=== PATIENT | female | born 1950 | race African-American/Black ===

== ENCOUNTER 2018-03-30 08:41 | Inpatient (IN) ==
[2018-03-30] MEDS ORDERED: methylPREDNISolone SOD SUC 125 MG/2 ML VIAL IV STA (09:02)
[2018-03-30] MEDS ORDERED: LEVOFLOXACIN INJ 750 MG in PREMIX 1 EACH IV STA (09:02)
[2018-03-30 09:25] LABS: Basophils % 0.3 % (0.0-0.8); Eosinophils # 0.1 10*3/uL (0.0-0.87); Eosinophils % 0.5 % (0.00-10.9); Hematocrit 44.6 VOL% (35.7-47.0); Hemoglobin 14.6 GM/DL (12.0-16.0); Immature Granulocytes % 0.3 %; Immature Granulocytes Absolute 0.04 #; Lymphocytes # 2.1 10*3/uL (1.4-4.0); Lymphocytes % 17.8 % (21.3-54.2); Mean Corpuscular HGB Conc 32.7 GM/DL (32-36); Mean Corpuscular Hemoglobin 29 PG (27-34); Mean Corpuscular Volume 88.8 FL (87-102); Mean Platelet Volume 11.5 FL (9.6-12.0); Monocytes # 1.1 10*3/uL (0.11-0.8); Monocytes % 9.5 % (1.7-12.7); Neutrophils # 8.5 10*3/uL (1.4-7.4); Neutrophils % 71.6 % (38.7-73.9); Platelet Count 216 T/CUMM (130-400); Red Blood Count 5.02 MC/CUMM (3.8-5.5); Red Cell Distribution Width 12.9 % (9.3-17.3); White Blood Count 11.9 T/CUMM (4-12)
[2018-03-30] MEDS ORDERED: LEVOFLOXACIN INJ 150 ML IV ONE (09:25)
[2018-03-30 09:43] LABS: Hypochromasia 1+
[2018-03-30 10:01] LABS: Apearance,Urine Slightly Hazy (Clear); Bacteria,Urine Occasional /HPF (Few); Bilirubin,Urine Negative (Negative); Blood, Urine Negative (Negative); Glucose,Urine (UA) Negative (Negative); Ketones,Urine 20 mg/dL (Negative); Mucus,Urine Few /LPF (Occasional); Nitrite,Urine Negative (Negative); Protein,Urine 100 MG/DL; RBC,Urine 2 /HPF (0-4); Squamous Epithelial Cell,Urine Occasional /HPF (0-10); Urine Color Amber (Yellow); Urine Specific Gravity 1.027 (1.001-1.035); WBC,Urine 4 /HPF (0-6)
[2018-03-30 10:02] LABS: Alanine Aminotransferase 12 U/L (13-56); Albumin 3.5 G/DL (3.4-5.0); Alkaline Phosphatase 143 U/L (45-117); Aspartate Amino Transferase 10 U/L (0-37); Blood Urea Nitrogen 11 MG/DL (7-18); Calcium 10.7 MG/DL (8.5-10.1); Glucose 139 MG/DL (74-106); Osmolality,Calculated 283.1 MOS/KG (273-304); Potassium 3.5 MMOL/L (3.5-5.1); Sodium 142 MMOL/L (136-145); Total Protein 8.1 G/DL (6.4-8.3); Troponin I Only < 0.015 NG/ML (0.00-0.045)
[2018-03-30] MEDS: ALBUTEROL 2.5 MG/3 ML NEB RESP TX SCH ×5 (10:15→20:03)
[2018-03-30] MEDS ORDERED: GLUCAGON 1 MG VIAL IM PRN (10:54)
[2018-03-30] MEDS ORDERED: DEXTROSE 50% 25 GM/50 ML VIAL IV PRN (10:54)
[2018-03-30] MEDS ORDERED: ALBUTEROL 2.5 MG/3 ML NEB RESP TX PRN (10:58)
[2018-03-30] MEDS ORDERED: ACETAMINOPHEN 500 MG TABLET ONE (11:37)
[2018-03-30] MEDS ORDERED: ACETAMINOPHEN 500 MG TABLET PO STA (11:47)
[2018-03-30] MEDS: INSULIN LISPRO 100 UNIT/ML SUBCUT SCH ×3 (12:25→20:17)
[2018-03-30] MEDS: ONDANSETRON 4 MG/2 ML VIAL IV PRN (14:11)
[2018-03-30] MEDS: SODIUM CHLORIDE 0.45% 1,000 ML IV SCH (14:12)
[2018-03-30] MEDS: metFORMIN 500 MG TABLET PO SCH (17:24)
[2018-03-30] MEDS: CARVEDILOL 25 MG TABLET PO SCH (17:24)
[2018-03-30] MEDS: ACETAMINOPHEN 325 MG TABLET PO PRN (17:26)
[2018-03-30] MEDS: methylPREDNISolone SOD SUC 40 MG/1 ML VIAL IV SCH (17:26)
[2018-03-30] MEDS: DOCUSATE SODIUM 100 MG CAPSULE PO SCH (20:16)
[2018-03-30] MEDS: SIMVASTATIN 20 MG TABLET PO SCH (20:16)
[2018-03-30] MEDS: SUCRALFATE 1 GM TABLET PO SCH (20:16)
[2018-03-30] MEDS: THEOPHYLLINE ER 300 MG TABLET PO SCH (20:16)
[2018-03-30] MEDS: ENOXAPARIN 40 MG/0.4 ML SYRINGE SUBCUT SCH (20:17)
[2018-03-30] MEDS ORDERED: GEMFIBROZIL 600 MG TABLET PO SCH (21:00)
[2018-03-31] MEDS: ALBUTEROL 2.5 MG/3 ML NEB RESP TX SCH ×4 (01:13→19:46)
[2018-03-31 06:00] LABS: Basophils % 0.2 % (0.0-0.8); Hematocrit 40.5 VOL% (35.7-47.0); Hemoglobin 13.3 GM/DL (12.0-16.0); Immature Granulocytes Absolute 0.14 #; Lymphocytes # 2.4 10*3/uL (1.4-4.0); Lymphocytes % 17.8 % (21.3-54.2); Mean Corpuscular HGB Conc 32.8 GM/DL (32-36); Mean Corpuscular Hemoglobin 29 PG (27-34); Mean Corpuscular Volume 89.4 FL (87-102); Mean Platelet Volume 11.7 FL (9.6-12.0); Monocytes # 0.6 10*3/uL (0.11-0.8); Monocytes % 4.2 % (1.7-12.7); Neutrophils # 10.5 10*3/uL (1.4-7.4); Neutrophils % 76.8 % (38.7-73.9); Platelet Count 285 T/CUMM (130-400); Red Blood Count 4.53 MC/CUMM (3.8-5.5); Red Cell Distribution Width 12.6 % (9.3-17.3); White Blood Count 13.7 T/CUMM (4-12)
[2018-03-31 06:22] LABS: Platelet Estimate Adequate
[2018-03-31 06:23] LABS: Hypochromasia Slight
[2018-03-31] MEDS ORDERED: NON-FORMULARY MEDICATION (Naloxegol Oxalate [Movantik] 25 MG) PO SCH (07:30)
[2018-03-31] MEDS ORDERED: NON-FORMULARY MEDICATION (Umeclidinium Brm/Vilanterol Tr [Anoro Ellipta] 1 PUFF) INH SCH (09:00)
[2018-03-31] MEDS: INSULIN LISPRO 100 UNIT/ML SUBCUT SCH ×4 (09:47→20:43)
[2018-03-31] MEDS: FUROSEMIDE 40 MG TABLET PO SCH (09:48)
[2018-03-31] MEDS: THEOPHYLLINE ER 300 MG TABLET PO SCH ×2 (09:48→20:42)
[2018-03-31] MEDS: DOCUSATE SODIUM 100 MG CAPSULE PO SCH ×2 (09:49→20:42)
[2018-03-31] MEDS: metFORMIN 500 MG TABLET PO SCH ×2 (09:49→18:12)
[2018-03-31] MEDS: CARVEDILOL 25 MG TABLET PO SCH ×2 (09:49→18:12)
[2018-03-31] MEDS: PANTOPRAZOLE 40 MG TABLET PO SCH (09:49)
[2018-03-31] MEDS: SERTRALINE 25 MG TABLET PO SCH (09:49)
[2018-03-31] MEDS: LEVOFLOXACIN INJ 500 MG in PREMIX 1 EACH IV SCH (09:49)
[2018-03-31] MEDS: SODIUM CHLORIDE 0.45% 1,000 ML IV SCH (09:51)
[2018-03-31] MEDS: SUCRALFATE 1 GM TABLET PO SCH ×2 (09:51→21:27)
[2018-03-31] MEDS: methylPREDNISolone SOD SUC 40 MG/1 ML VIAL IV SCH ×3 (09:52→18:12)
[2018-03-31] MEDS: ONDANSETRON 4 MG/2 ML VIAL IV PRN (17:02)
[2018-03-31] MEDS: SIMVASTATIN 20 MG TABLET PO SCH (20:42)
[2018-03-31] MEDS: ENOXAPARIN 40 MG/0.4 ML SYRINGE SUBCUT SCH (20:42)
[2018-04-01] MEDS: ALBUTEROL 2.5 MG/3 ML NEB RESP TX SCH ×4 (00:08→19:30)
[2018-04-01] MEDS: methylPREDNISolone SOD SUC 40 MG/1 ML VIAL IV SCH ×3 (00:59→17:39)
[2018-04-01] MEDS: SODIUM CHLORIDE 0.45% 1,000 ML IV SCH (06:06)
[2018-04-01] MEDS: INSULIN LISPRO 100 UNIT/ML SUBCUT SCH ×3 (08:44→16:13)
[2018-04-01] MEDS: THEOPHYLLINE ER 300 MG TABLET PO SCH ×2 (09:30→20:31)
[2018-04-01] MEDS: metFORMIN 500 MG TABLET PO SCH ×2 (09:30→17:39)
[2018-04-01] MEDS: DOCUSATE SODIUM 100 MG CAPSULE PO SCH ×2 (09:31→20:31)
[2018-04-01] MEDS: LEVOFLOXACIN INJ 500 MG in PREMIX 1 EACH IV SCH (09:31)
[2018-04-01] MEDS: PANTOPRAZOLE 40 MG TABLET PO SCH (09:31)
[2018-04-01] MEDS: CARVEDILOL 25 MG TABLET PO SCH ×2 (09:31→17:39)
[2018-04-01] MEDS: SUCRALFATE 1 GM TABLET PO SCH ×2 (09:31→20:31)
[2018-04-01] MEDS: FUROSEMIDE 40 MG TABLET PO SCH (09:31)
[2018-04-01] MEDS: SERTRALINE 25 MG TABLET PO SCH (09:31)
[2018-04-01] MEDS: ONDANSETRON 4 MG/2 ML VIAL IV PRN (16:08)
[2018-04-01] MEDS: SIMVASTATIN 20 MG TABLET PO SCH (20:31)
[2018-04-01] MEDS: ENOXAPARIN 40 MG/0.4 ML SYRINGE SUBCUT SCH (20:31)
[2018-04-01] MEDS: ZALEPLON 5 MG CAPSULE PO SCH (20:31)
[2018-04-02] MEDS: ALBUTEROL 2.5 MG/3 ML NEB RESP TX SCH ×4 (00:31→19:50)
[2018-04-02] MEDS: methylPREDNISolone SOD SUC 40 MG/1 ML VIAL IV SCH ×4 (00:50→23:48)
[2018-04-02] MEDS: SODIUM CHLORIDE 0.45% 1,000 ML IV SCH ×2 (00:51→21:02)
[2018-04-02] MEDS: ONDANSETRON 4 MG/2 ML VIAL IV PRN ×3 (02:28→23:52)
[2018-04-02] MEDS: INSULIN LISPRO 100 UNIT/ML SUBCUT SCH ×5 (06:31→21:06)
[2018-04-02] MEDS: CARVEDILOL 25 MG TABLET PO SCH ×2 (08:46→18:03)
[2018-04-02] MEDS: DOCUSATE SODIUM 100 MG CAPSULE PO SCH ×2 (08:46→20:57)
[2018-04-02] MEDS: FUROSEMIDE 40 MG TABLET PO SCH (08:46)
[2018-04-02] MEDS: SERTRALINE 25 MG TABLET PO SCH (08:46)
[2018-04-02] MEDS: metFORMIN 500 MG TABLET PO SCH ×2 (08:46→18:03)
[2018-04-02] MEDS: SUCRALFATE 1 GM TABLET PO SCH ×2 (08:46→20:57)
[2018-04-02] MEDS: THEOPHYLLINE ER 300 MG TABLET PO SCH ×2 (08:46→20:57)
[2018-04-02] MEDS: PANTOPRAZOLE 40 MG TABLET PO SCH (08:46)
[2018-04-02] MEDS: LEVOFLOXACIN INJ 500 MG in PREMIX 1 EACH IV SCH (08:52)
[2018-04-02] MEDS ORDERED: LACTULOSE 20 GM/30 ML UDCUP PO PRN (11:20)
[2018-04-02] MEDS: MAGNESIUM HYDROXIDE SUSP 30 ML UDCUP PO SCH ×3 (11:54→21:49)
[2018-04-02] MEDS: ZALEPLON 5 MG CAPSULE PO SCH (20:57)
[2018-04-02] MEDS: SIMVASTATIN 20 MG TABLET PO SCH (20:57)
[2018-04-02] MEDS: ENOXAPARIN 40 MG/0.4 ML SYRINGE SUBCUT SCH (20:58)
[2018-04-03] MEDS: ALBUTEROL 2.5 MG/3 ML NEB RESP TX SCH ×4 (00:40→20:03)
[2018-04-03] MEDS: ONDANSETRON 4 MG/2 ML VIAL IV PRN ×2 (02:52→08:54)
[2018-04-03 05:30] LABS: Basophils % 0.1 % (0.0-0.8); Hematocrit 40.9 VOL% (35.7-47.0); Immature Granulocytes % 1.1 %; Immature Granulocytes Absolute 0.12 #; Lymphocytes # 1.7 10*3/uL (1.4-4.0); Lymphocytes % 16.1 % (21.3-54.2); Mean Corpuscular HGB Conc 34.2 GM/DL (32-36); Mean Corpuscular Hemoglobin 29 PG (27-34); Mean Corpuscular Volume 85.9 FL (87-102); Mean Platelet Volume 11.3 FL (9.6-12.0); Monocytes # 0.5 10*3/uL (0.11-0.8); Monocytes % 4.4 % (1.7-12.7); Neutrophils # 8.2 10*3/uL (1.4-7.4); Neutrophils % 78.3 % (38.7-73.9); Platelet Count 309 T/CUMM (130-400); Red Blood Count 4.76 MC/CUMM (3.8-5.5); Red Cell Distribution Width 12.5 % (9.3-17.3); White Blood Count 10.5 T/CUMM (4-12)
[2018-04-03] MEDS ORDERED: PROMETHAZINE INJ 25 MG in SODIUM CHLORIDE 0.9% 50 ML IV ONE (05:51)
[2018-04-03 06:07] LABS: Alanine Aminotransferase 13 U/L (13-56); Albumin 2.7 G/DL (3.4-5.0); Alkaline Phosphatase 84 U/L (45-117); Aspartate Amino Transferase 6 U/L (0-37); Bilirubin,Total < 0.39 MG/DL (0.2-1.0); Blood Urea Nitrogen 17 MG/DL (7-18); Calcium 8.6 MG/DL (8.5-10.1); Glucose 141 MG/DL (74-106); Potassium 2.9 MMOL/L (3.5-5.1); Sodium 143 MMOL/L (136-145); Total Protein 6.2 G/DL (6.4-8.3)
[2018-04-03] MEDS: MAGNESIUM HYDROXIDE SUSP 30 ML UDCUP PO SCH ×3 (06:17→21:49)
[2018-04-03] MEDS ORDERED: MAGNESIUM SULF RIDER 2 GM in PREMIX 1 EACH IV ONE (08:01)
[2018-04-03] MEDS ORDERED: POTASSIUM CHLORIDE 20 MEQ TABLET PO ONE (08:01)
[2018-04-03] MEDS: INSULIN LISPRO 100 UNIT/ML SUBCUT SCH ×4 (08:22→20:45)
[2018-04-03] MEDS: metFORMIN 500 MG TABLET PO SCH ×2 (08:49→17:59)
[2018-04-03] MEDS: PREGABALIN 100 MG CAPSULE PO PRN (08:49)
[2018-04-03] MEDS: methylPREDNISolone SOD SUC 40 MG/1 ML VIAL IV SCH ×2 (08:49→17:13)
[2018-04-03] MEDS: DOCUSATE SODIUM 100 MG CAPSULE PO SCH ×2 (08:49→20:50)
[2018-04-03] MEDS: SERTRALINE 25 MG TABLET PO SCH (08:49)
[2018-04-03] MEDS: THEOPHYLLINE ER 300 MG TABLET PO SCH ×2 (08:49→20:50)
[2018-04-03] MEDS: FUROSEMIDE 40 MG TABLET PO SCH (08:49)
[2018-04-03] MEDS: CARVEDILOL 25 MG TABLET PO SCH ×2 (08:49→17:59)
[2018-04-03] MEDS: LEVOFLOXACIN INJ 500 MG in PREMIX 1 EACH IV SCH (08:50)
[2018-04-03] MEDS: PANTOPRAZOLE 40 MG TABLET PO SCH (08:50)
[2018-04-03] MEDS: LACTULOSE 20 GM/30 ML UDCUP PO SCH ×2 (08:50→20:51)
[2018-04-03] MEDS: SUCRALFATE 1 GM TABLET PO SCH ×2 (08:54→20:50)
[2018-04-03] MEDS: NICOTINE 14 MG/24 HR PATCH TRANSDERM SCH (08:55)
[2018-04-03] MEDS: PROMETHAZINE 25 MG/1 ML VIAL IM PRN ×2 (12:33→20:46)
[2018-04-03] MEDS: ENOXAPARIN 40 MG/0.4 ML SYRINGE SUBCUT SCH (20:46)
[2018-04-03] MEDS: ZALEPLON 5 MG CAPSULE PO SCH (20:50)
[2018-04-03] MEDS: SIMVASTATIN 20 MG TABLET PO SCH (20:50)
[2018-04-03] MEDS: SODIUM CHLORIDE 0.45% 1,000 ML IV SCH (22:21)
[2018-04-04] MEDS: ALBUTEROL/IPRATROPIUM 3 ML NEB RESP TX SCH ×4 (00:28→19:13)
[2018-04-04 04:34] LABS: Basophils % 0.1 % (0.0-0.8); Eosinophils % 0.3 % (0.00-10.9); Hematocrit 42.1 VOL% (35.7-47.0); Hemoglobin 13.8 GM/DL (12.0-16.0); Immature Granulocytes % 1.1 %; Immature Granulocytes Absolute 0.16 #; Lymphocytes # 3.7 10*3/uL (1.4-4.0); Lymphocytes % 25.6 % (21.3-54.2); Mean Corpuscular HGB Conc 32.8 GM/DL (32-36); Mean Corpuscular Hemoglobin 29 PG (27-34); Mean Corpuscular Volume 88.6 FL (87-102); Monocytes # 1.2 10*3/uL (0.11-0.8); Monocytes % 7.9 % (1.7-12.7); Neutrophils # 9.5 10*3/uL (1.4-7.4); Platelet Count 317 T/CUMM (130-400); Red Blood Count 4.75 MC/CUMM (3.8-5.5); Red Cell Distribution Width 12.8 % (9.3-17.3); White Blood Count 14.6 T/CUMM (4-12)
[2018-04-04] MEDS: methylPREDNISolone SOD SUC 40 MG/1 ML VIAL IV SCH ×4 (04:41→23:35)
[2018-04-04 05:03] LABS: Albumin 2.7 G/DL (3.4-5.0); Bilirubin,Total 0.7 MG/DL (0.2-1.0); Calcium 8.7 MG/DL (8.5-10.1); Osmolality,Calculated 294.4 MOS/KG (273-304); Total Protein 5.9 G/DL (6.4-8.3)
[2018-04-04] MEDS: MAGNESIUM HYDROXIDE SUSP 30 ML UDCUP PO SCH ×4 (06:12→21:15)
[2018-04-04] MEDS: INSULIN LISPRO 100 UNIT/ML SUBCUT SCH ×4 (07:27→21:14)
[2018-04-04] MEDS: NICOTINE 14 MG/24 HR PATCH TRANSDERM SCH (08:56)
[2018-04-04] MEDS: SODIUM CHLORIDE 0.45% 1,000 ML IV SCH ×2 (08:56→11:33)
[2018-04-04] MEDS: LEVOFLOXACIN INJ 500 MG in PREMIX 1 EACH IV SCH (08:57)
[2018-04-04] MEDS: LACTULOSE 20 GM/30 ML UDCUP PO SCH ×2 (08:58→21:15)
[2018-04-04] MEDS: metFORMIN 500 MG TABLET PO SCH ×2 (08:58→16:39)
[2018-04-04] MEDS: SUCRALFATE 1 GM TABLET PO SCH ×2 (08:58→21:14)
[2018-04-04] MEDS: CARVEDILOL 25 MG TABLET PO SCH ×2 (08:58→16:39)
[2018-04-04] MEDS: PANTOPRAZOLE 40 MG TABLET PO SCH (08:59)
[2018-04-04] MEDS: THEOPHYLLINE ER 300 MG TABLET PO SCH ×2 (08:59→21:16)
[2018-04-04] MEDS: SERTRALINE 25 MG TABLET PO SCH (08:59)
[2018-04-04] MEDS: FUROSEMIDE 40 MG TABLET PO SCH (08:59)
[2018-04-04] MEDS: POTASSIUM CHLORIDE 20 MEQ TABLET PO PRN ×4 (08:59→15:16)
[2018-04-04] MEDS: DOCUSATE SODIUM 100 MG CAPSULE PO SCH ×2 (08:59→21:14)
[2018-04-04] MEDS: PREGABALIN 100 MG CAPSULE PO PRN ×2 (09:04→21:13)
[2018-04-04] MEDS: ONDANSETRON 4 MG/2 ML VIAL IV PRN ×2 (09:04→21:21)
[2018-04-04] MEDS: PROMETHAZINE 25 MG/1 ML VIAL IM PRN (10:31)
[2018-04-04] MEDS: POLYETHYLENE GLYCOL POWDER 17 GM PACK PO SCH (10:32)
[2018-04-04] MEDS ORDERED: POTASSIUM CHLORIDE 20 MEQ TABLET PO ONE (14:15)
[2018-04-04] MEDS ORDERED: MAGNESIUM SULF RIDER 2 GM in PREMIX 1 EACH IV ONE (15:38)
[2018-04-04] MEDS ORDERED: MAGNESIUM SULF RIDER 2 GM in PREMIX 1 EACH IV PRN (18:55)
[2018-04-04] MEDS ORDERED: MAGNESIUM SULF RIDER 4 GM in PREMIX 1 EACH IV PRN (18:55)
[2018-04-04] MEDS ORDERED: POTASSIUM CHLORIDE 20 MEQ TABLET PO SCH ×2 (21:00→22:47)
[2018-04-04] MEDS: SIMVASTATIN 20 MG TABLET PO SCH (21:14)
[2018-04-04] MEDS: ENOXAPARIN 40 MG/0.4 ML SYRINGE SUBCUT SCH (21:15)
[2018-04-04] MEDS: ZALEPLON 5 MG CAPSULE PO SCH (21:17)
[2018-04-05] MEDS: ALBUTEROL/IPRATROPIUM 3 ML NEB RESP TX SCH ×4 (00:40→19:44)
[2018-04-05] MEDS: ACETAMINOPHEN 325 MG TABLET PO PRN (02:16)
[2018-04-05 05:58] LABS: Basophils % 0.2 % (0.0-0.8); Eosinophils % 0.1 % (0.00-10.9); Hematocrit 41.7 VOL% (35.7-47.0); Hemoglobin 13.5 GM/DL (12.0-16.0); Immature Granulocytes % 1.4 %; Immature Granulocytes Absolute 0.27 #; Lymphocytes # 1.8 10*3/uL (1.4-4.0); Lymphocytes % 9.7 % (21.3-54.2); Mean Corpuscular HGB Conc 32.4 GM/DL (32-36); Mean Corpuscular Hemoglobin 29 PG (27-34); Mean Corpuscular Volume 89.5 FL (87-102); Mean Platelet Volume 11.3 FL (9.6-12.0); Monocytes # 0.5 10*3/uL (0.11-0.8); Monocytes % 2.5 % (1.7-12.7); Neutrophils # 16.1 10*3/uL (1.4-7.4); Neutrophils % 86.1 % (38.7-73.9); Platelet Count 316 T/CUMM (130-400); Red Blood Count 4.66 MC/CUMM (3.8-5.5); White Blood Count 18.7 T/CUMM (4-12)
[2018-04-05] MEDS: MAGNESIUM HYDROXIDE SUSP 30 ML UDCUP PO SCH ×3 (06:06→22:35)
[2018-04-05 06:39] LABS: Calcium 9.7 MG/DL (8.5-10.1); Osmolality,Calculated 287.1 MOS/KG (273-304); Potassium 4.9 MMOL/L (3.5-5.1)
[2018-04-05] MEDS: ONDANSETRON 4 MG/2 ML VIAL IV PRN ×2 (06:40→13:47)
[2018-04-05] MEDS: INSULIN LISPRO 100 UNIT/ML SUBCUT SCH ×4 (08:51→21:58)
[2018-04-05] MEDS: POLYETHYLENE GLYCOL POWDER 17 GM PACK PO SCH (08:59)
[2018-04-05] MEDS: LEVOFLOXACIN INJ 500 MG in PREMIX 1 EACH IV SCH (08:59)
[2018-04-05] MEDS: SODIUM CHLORIDE 0.45% 1,000 ML IV SCH (08:59)
[2018-04-05] MEDS: THEOPHYLLINE ER 300 MG TABLET PO SCH ×2 (09:02→20:25)
[2018-04-05] MEDS: FUROSEMIDE 40 MG TABLET PO SCH (09:02)
[2018-04-05] MEDS: SERTRALINE 25 MG TABLET PO SCH (09:02)
[2018-04-05] MEDS: DOCUSATE SODIUM 100 MG CAPSULE PO SCH ×2 (09:02→20:25)
[2018-04-05] MEDS: metFORMIN 500 MG TABLET PO SCH ×2 (09:02→16:34)
[2018-04-05] MEDS: SUCRALFATE 1 GM TABLET PO SCH ×2 (09:02→20:26)
[2018-04-05] MEDS: PANTOPRAZOLE 40 MG TABLET PO SCH (09:02)
[2018-04-05] MEDS: NICOTINE 14 MG/24 HR PATCH TRANSDERM SCH (09:03)
[2018-04-05] MEDS: CARVEDILOL 25 MG TABLET PO SCH ×2 (09:03→16:34)
[2018-04-05] MEDS: POTASSIUM CHLORIDE 20 MEQ TABLET PO SCH ×2 (09:03→20:25)
[2018-04-05] MEDS: methylPREDNISolone SOD SUC 40 MG/1 ML VIAL IV SCH ×2 (09:04→16:34)
[2018-04-05] MEDS: LACTULOSE 20 GM/30 ML UDCUP PO SCH ×2 (09:07→20:26)
[2018-04-05] MEDS: PROMETHAZINE 25 MG/1 ML VIAL IM PRN (09:31)
[2018-04-05] MEDS: ENOXAPARIN 40 MG/0.4 ML SYRINGE SUBCUT SCH (20:25)
[2018-04-05] MEDS: SIMVASTATIN 20 MG TABLET PO SCH (20:25)
[2018-04-05] MEDS: ZALEPLON 5 MG CAPSULE PO SCH (20:25)
[2018-04-06] MEDS: methylPREDNISolone SOD SUC 40 MG/1 ML VIAL IV SCH ×2 (00:08→07:58)
[2018-04-06] MEDS: ONDANSETRON 4 MG/2 ML VIAL IV PRN ×2 (01:22→07:57)
[2018-04-06] MEDS: ALBUTEROL/IPRATROPIUM 3 ML NEB RESP TX SCH ×2 (01:24→07:40)
[2018-04-06] MEDS: MAGNESIUM HYDROXIDE SUSP 30 ML UDCUP PO SCH (06:28)
[2018-04-06 07:44] VITALS: BP 175/79
[2018-04-06] MEDS: CARVEDILOL 25 MG TABLET PO SCH (07:56)
[2018-04-06] MEDS: metFORMIN 500 MG TABLET PO SCH (07:57)
[2018-04-06] MEDS: SODIUM CHLORIDE 0.45% 1,000 ML IV SCH (07:59)
[2018-04-06] MEDS: INSULIN LISPRO 100 UNIT/ML SUBCUT SCH (08:50)
[2018-04-06] MEDS: SUCRALFATE 1 GM TABLET PO SCH (09:08)
[2018-04-06] MEDS: FUROSEMIDE 40 MG TABLET PO SCH (09:08)
[2018-04-06] MEDS: PANTOPRAZOLE 40 MG TABLET PO SCH (09:08)
[2018-04-06] MEDS: POTASSIUM CHLORIDE 20 MEQ TABLET PO SCH (09:08)
[2018-04-06] MEDS: THEOPHYLLINE ER 300 MG TABLET PO SCH (09:08)
[2018-04-06] MEDS: DOCUSATE SODIUM 100 MG CAPSULE PO SCH (09:09)
[2018-04-06] MEDS: SERTRALINE 25 MG TABLET PO SCH (09:09)
[2018-04-06] MEDS: LEVOFLOXACIN INJ 500 MG in PREMIX 1 EACH IV SCH (09:09)
[2018-04-06] MEDS: POLYETHYLENE GLYCOL POWDER 17 GM PACK PO SCH (09:09)
[2018-04-06] MEDS: LACTULOSE 20 GM/30 ML UDCUP PO SCH (09:45)
[2018-04-06] MEDS: NICOTINE 14 MG/24 HR PATCH TRANSDERM SCH (09:46)
== END 2018-04-06 11:34 | disposition home or self-care (01) | DRG 191 ==
LOC: EDBD → EDUNIT# → N.ED 08:41 → N.EDINP 10:54 → N.4E 11:27
PROVIDERS: ADMIT Internal Medicine; ATTEND Internal Medicine

== ENCOUNTER 2019-07-22 12:49 | Inpatient (IN) ==
[2019-07-22 13:26] LABS: Basophils % 0.4 % (0.0-0.8); Eosinophils # 0.4 10*3/uL (0.0-0.87); Eosinophils % 5.2 % (0.00-10.9); Hemoglobin 15.7 GM/DL (12.0-16.0); Immature Granulocytes % 0.4 %; Immature Granulocytes Absolute 0.03 #; Lymphocytes # 0.9 10*3/uL (1.4-4.0); Lymphocytes % 10.8 % (21.3-54.2); Mean Corpuscular HGB Conc 32.7 GM/DL (32-36); Mean Corpuscular Volume 91.8 FL (87-102); Mean Platelet Volume 11.4 FL (9.6-12.0); Monocytes % 11.4 % (1.7-12.7); Neutrophils % 71.8 % (38.7-73.9); Platelet Count 223 T/CUMM (130-400); Red Blood Count 5.23 MC/CUMM (3.8-5.5); Red Cell Distribution Width 12.6 % (9.3-17.3); White Blood Count 8.3 T/CUMM (4-12)
[2019-07-22 13:53] LABS: Alanine Aminotransferase 21 U/L (13-56); Albumin 3.8 G/DL (3.4-5.0); Alkaline Phosphatase 109 U/L (45-117); Aspartate Amino Transferase 22 U/L (0-37); Blood Urea Nitrogen 6 MG/DL (7-18); Calcium 9.2 MG/DL (8.5-10.1); Glucose 120 MG/DL (74-106); Osmolality,Calculated 288.6 MOS/KG (273-304); Total Protein 7.2 G/DL (6.4-8.3); Troponin I < 0.015 NG/ML (0.00-0.045)
[2019-07-22] MEDS ORDERED: POTASSIUM CHLORIDE 20 MEQ TABLET PO STA (14:04)
[2019-07-22] MEDS ORDERED: MAGNESIUM SULF RIDER 2 GM in PREMIX 1 EACH IV STA (14:04)
[2019-07-22] MEDS ORDERED: ONDANSETRON 4 MG/2 ML VIAL IV STA (14:16)
[2019-07-22] MEDS ORDERED: methylPREDNISolone SOD SUC 125 MG/2 ML VIAL IV STA (14:16)
[2019-07-22] MEDS ORDERED: ALBUTEROL/IPRATROPIUM 3 ML NEB RESP TX STA (14:16)
[2019-07-22] MEDS ORDERED: PIPERACILLIN/TAZOBACTAM 3,375 MG in SODIUM CHLORIDE 0.9% 100 ML IV STA (14:16)
[2019-07-22 14:28] LABS: INR 0.9; PT Patient Result 10.3 SECS (9.6-12.2)
[2019-07-22] MEDS ORDERED: ACETAMINOPHEN 500 MG TABLET ONE (16:46)
[2019-07-22] MEDS ORDERED: ACETAMINOPHEN 500 MG TABLET PO STA (16:49)
[2019-07-22] MEDS ORDERED: SODIUM CHLORIDE 0.9% 1,000 ML IV SCH (17:44)
[2019-07-22] MEDS ORDERED: ALBUTEROL 2.5 MG/3 ML NEB RESP TX PRN (17:44)
[2019-07-22] MEDS ORDERED: GLUCAGON 1 MG VIAL IM PRN (17:44)
[2019-07-22] MEDS ORDERED: DEXTROSE 10% 250 ML BAG IV PRN (17:44)
[2019-07-22] MEDS ORDERED: metFORMIN 500 MG TABLET PO SCH (17:44)
[2019-07-22] MEDS ORDERED: MAGNESIUM SULF RIDER 2 GM in PREMIX 1 EACH IV ONE (18:04)
[2019-07-22] MEDS ORDERED: POTASSIUM CHLORIDE 20 MEQ TABLET PO ONE (18:05)
[2019-07-22] MEDS ORDERED: CARVEDILOL 12.5 MG TABLET PO ONE (18:08)
[2019-07-22] MEDS: INSULIN REGULAR 100 UNIT/ML SUBCUT SCH (18:34)
[2019-07-22] MEDS: CARVEDILOL 25 MG TABLET PO SCH (18:39)
[2019-07-22] MEDS: DEXTROSE 5% 1,000 ML IV SCH (18:48)
[2019-07-22] MEDS: ALBUTEROL/IPRATROPIUM 3 ML NEB RESP TX SCH (20:18)
[2019-07-22] MEDS: THEOPHYLLINE ER 300 MG TABLET PO SCH (21:22)
[2019-07-22] MEDS: GEMFIBROZIL 600 MG TABLET PO SCH (21:23)
[2019-07-22] MEDS: SUCRALFATE 1 GM TABLET PO SCH (21:23)
[2019-07-22] MEDS: SIMVASTATIN 20 MG TABLET PO SCH (21:23)
[2019-07-22] MEDS: DOCUSATE SODIUM 100 MG CAPSULE PO SCH (21:23)
[2019-07-22] MEDS: MAGNESIUM OXIDE 400 MG TABLET PO SCH (21:24)
[2019-07-22] MEDS: cycloSPORINE OPH EMUL 1 VIAL BOTH EYES PRN (21:27)
[2019-07-22] MEDS: LACTULOSE 20 GM/30 ML UDCUP PO SCH (21:35)
[2019-07-22] MEDS: methylPREDNISolone SOD SUC 40 MG/1 ML VIAL IV SCH (21:36)
[2019-07-22] MEDS: ENOXAPARIN 40 MG/0.4 ML SYRINGE SUBCUT SCH (21:36)
[2019-07-22] MEDS: NICOTINE 14 MG/24 HR PATCH TRANSDERM SCH (21:40)
[2019-07-23] MEDS: INSULIN REGULAR 100 UNIT/ML SUBCUT SCH ×4 (00:25→18:13)
[2019-07-23] MEDS: ALBUTEROL/IPRATROPIUM 3 ML NEB RESP TX SCH ×4 (00:37→19:20)
[2019-07-23] MEDS: methylPREDNISolone SOD SUC 40 MG/1 ML VIAL IV SCH ×4 (02:02→21:30)
[2019-07-23] MEDS: ACETAMINOPHEN 325 MG TABLET PO PRN (06:17)
[2019-07-23 06:18] LABS: Hematocrit 42.3 VOL% (35.7-47.0); Hemoglobin 13.8 GM/DL (12.0-16.0); Immature Granulocytes % 0.2 %; Immature Granulocytes Absolute 0.01 #; Lymphocytes % 21.4 % (21.3-54.2); Mean Corpuscular HGB Conc 32.6 GM/DL (32-36); Mean Corpuscular Volume 90.6 FL (87-102); Monocytes % 3.4 % (1.7-12.7); Platelet Count 223 T/CUMM (130-400); Red Blood Count 4.67 MC/CUMM (3.8-5.5); Red Cell Distribution Width 12.5 % (9.3-17.3); White Blood Count 4.7 T/CUMM (4-12)
[2019-07-23 06:36] LABS: Albumin 3.2 G/DL (3.4-5.0); Bilirubin,Total 0.7 MG/DL (0.2-1.0); Calcium 8.7 MG/DL (8.5-10.1); Osmolality,Calculated 290.1 MOS/KG (273-304); Risk Ratio 2.7; Total Protein 6.4 G/DL (6.4-8.3); VLDL CHOLESTEROL 19.2 MG/DL
[2019-07-23] MEDS ORDERED: NALOXEGOL 25 MG PO SCH (07:30)
[2019-07-23] MEDS ORDERED: POTASSIUM CHLORIDE 20 MEQ TABLET PO ONE (08:57)
[2019-07-23] MEDS ORDERED: PANTOPRAZOLE 40 MG TABLET PO SCH (09:00)
[2019-07-23] MEDS ORDERED: POTASSIUM CHLORIDE 20 MEQ TABLET PO SCH (09:00)
[2019-07-23] MEDS ORDERED: Umeclidinium-Vilanterol [Anoro Ellipta] 1 PUFF INH SCH (09:00)
[2019-07-23] MEDS: INSULIN GLARGINE 100 UNIT/ML SUBCUT SCH (09:21)
[2019-07-23] MEDS: DOCUSATE SODIUM 100 MG CAPSULE PO SCH ×2 (09:22→21:26)
[2019-07-23] MEDS: GEMFIBROZIL 600 MG TABLET PO SCH ×2 (09:22→21:26)
[2019-07-23] MEDS: CHOLECALCIFEROL 1,000 UNIT TABLET PO SCH (09:22)
[2019-07-23] MEDS: SUCRALFATE 1 GM TABLET PO SCH ×2 (09:22→21:26)
[2019-07-23] MEDS: THEOPHYLLINE ER 300 MG TABLET PO SCH ×2 (09:23→21:54)
[2019-07-23] MEDS: MAGNESIUM OXIDE 400 MG TABLET PO SCH ×2 (09:23→21:33)
[2019-07-23] MEDS: ASPIRIN EC 81 MG TABLET PO SCH (09:23)
[2019-07-23] MEDS: FUROSEMIDE 40 MG TABLET PO SCH (09:24)
[2019-07-23] MEDS: CARVEDILOL 25 MG TABLET PO SCH ×3 (09:24→16:33)
[2019-07-23] MEDS: PANTOPRAZOLE 40 MG TABLET PO SCH (09:24)
[2019-07-23] MEDS: SERTRALINE 25 MG TABLET PO SCH (09:24)
[2019-07-23] MEDS: NICOTINE 14 MG/24 HR PATCH TRANSDERM SCH (09:24)
[2019-07-23] MEDS: LACTULOSE 20 GM/30 ML UDCUP PO SCH ×2 (09:25→21:29)
[2019-07-23] MEDS: DEXTROSE 5% 1,000 ML IV SCH (09:29)
[2019-07-23] MEDS: ONDANSETRON 4 MG/2 ML VIAL IV PRN ×2 (09:35→15:45)
[2019-07-23] MEDS: AZITHROMYCIN INJ 250 MG in SODIUM CHLORIDE 0.9% 250 ML IV SCH (12:10)
[2019-07-23] MEDS: POTASSIUM CHLORIDE 20 MEQ TABLET PO SCH (21:26)
[2019-07-23] MEDS: SIMVASTATIN 20 MG TABLET PO SCH (21:26)
[2019-07-23] MEDS: ENOXAPARIN 40 MG/0.4 ML SYRINGE SUBCUT SCH (21:29)
[2019-07-24] MEDS: INSULIN REGULAR 100 UNIT/ML SUBCUT SCH ×4 (00:10→17:41)
[2019-07-24] MEDS: methylPREDNISolone SOD SUC 40 MG/1 ML VIAL IV SCH ×4 (03:25→21:51)
[2019-07-24] MEDS: ONDANSETRON 4 MG/2 ML VIAL IV PRN (03:34)
[2019-07-24] MEDS: DEXTROSE 5% 1,000 ML IV SCH ×2 (03:37→17:40)
[2019-07-24] MEDS: cycloSPORINE OPH EMUL 1 VIAL BOTH EYES PRN ×2 (05:50→21:49)
[2019-07-24] MEDS: ALBUTEROL/IPRATROPIUM 3 ML NEB RESP TX SCH ×4 (07:18→20:08)
[2019-07-24] MEDS: INSULIN GLARGINE 100 UNIT/ML SUBCUT SCH (09:52)
[2019-07-24] MEDS: LACTULOSE 20 GM/30 ML UDCUP PO SCH ×2 (09:53→22:22)
[2019-07-24] MEDS: FUROSEMIDE 40 MG TABLET PO SCH (09:54)
[2019-07-24] MEDS: NICOTINE 14 MG/24 HR PATCH TRANSDERM SCH (09:54)
[2019-07-24] MEDS: DOCUSATE SODIUM 100 MG CAPSULE PO SCH ×2 (09:54→21:42)
[2019-07-24] MEDS: GEMFIBROZIL 600 MG TABLET PO SCH ×2 (09:54→21:44)
[2019-07-24] MEDS: CARVEDILOL 25 MG TABLET PO SCH ×2 (09:54→16:37)
[2019-07-24] MEDS: ASPIRIN EC 81 MG TABLET PO SCH (09:55)
[2019-07-24] MEDS: MAGNESIUM OXIDE 400 MG TABLET PO SCH ×2 (09:55→21:42)
[2019-07-24] MEDS: PANTOPRAZOLE 40 MG TABLET PO SCH (10:13)
[2019-07-24] MEDS: POTASSIUM CHLORIDE 20 MEQ TABLET PO SCH ×2 (10:13→21:42)
[2019-07-24] MEDS: SERTRALINE 25 MG TABLET PO SCH (10:21)
[2019-07-24] MEDS: SUCRALFATE 1 GM TABLET PO SCH ×2 (10:21→21:42)
[2019-07-24] MEDS: CHOLECALCIFEROL 1,000 UNIT TABLET PO SCH (10:21)
[2019-07-24] MEDS: AZITHROMYCIN INJ 250 MG in SODIUM CHLORIDE 0.9% 250 ML IV SCH (10:22)
[2019-07-24] MEDS: THEOPHYLLINE ER 300 MG TABLET PO SCH ×2 (10:23→21:42)
[2019-07-24 10:29] LABS: Calcium 8.9 MG/DL (8.5-10.1); Osmolality,Calculated 287.3 MOS/KG (273-304)
[2019-07-24] MEDS: SIMVASTATIN 20 MG TABLET PO SCH (21:42)
[2019-07-24] MEDS: ENOXAPARIN 40 MG/0.4 ML SYRINGE SUBCUT SCH (21:51)
[2019-07-25] MEDS: BUDESONIDE 0.25 MG/2 ML NEB RESP TX SCH ×3 (00:46→19:54)
[2019-07-25] MEDS: ALBUTEROL/IPRATROPIUM 3 ML NEB RESP TX SCH ×4 (00:46→19:54)
[2019-07-25] MEDS: methylPREDNISolone SOD SUC 40 MG/1 ML VIAL IV SCH ×4 (03:13→21:21)
[2019-07-25 06:50] LABS: Calcium 9.2 MG/DL (8.5-10.1); Osmolality,Calculated 279.5 MOS/KG (273-304)
[2019-07-25] MEDS: INSULIN REGULAR 100 UNIT/ML SUBCUT SCH ×3 (07:47→13:04)
[2019-07-25] MEDS: LACTULOSE 20 GM/30 ML UDCUP PO SCH ×2 (09:53→21:12)
[2019-07-25] MEDS: NICOTINE 14 MG/24 HR PATCH TRANSDERM SCH (09:53)
[2019-07-25] MEDS: THEOPHYLLINE ER 300 MG TABLET PO SCH ×2 (09:54→21:11)
[2019-07-25] MEDS: DOCUSATE SODIUM 100 MG CAPSULE PO SCH ×2 (09:54→21:11)
[2019-07-25] MEDS: SERTRALINE 25 MG TABLET PO SCH (09:54)
[2019-07-25] MEDS: CARVEDILOL 25 MG TABLET PO SCH ×2 (09:54→16:00)
[2019-07-25] MEDS: GEMFIBROZIL 600 MG TABLET PO SCH ×2 (09:54→21:11)
[2019-07-25] MEDS: MAGNESIUM OXIDE 400 MG TABLET PO SCH ×2 (09:54→21:11)
[2019-07-25] MEDS: PANTOPRAZOLE 40 MG TABLET PO SCH (09:55)
[2019-07-25] MEDS: ASPIRIN EC 81 MG TABLET PO SCH (09:55)
[2019-07-25] MEDS: SUCRALFATE 1 GM TABLET PO SCH ×2 (09:55→21:11)
[2019-07-25] MEDS: FUROSEMIDE 40 MG TABLET PO SCH (09:55)
[2019-07-25] MEDS: CHOLECALCIFEROL 1,000 UNIT TABLET PO SCH (09:55)
[2019-07-25] MEDS: POTASSIUM CHLORIDE 20 MEQ TABLET PO SCH ×2 (09:56→21:12)
[2019-07-25] MEDS: DEXTROSE 5% 1,000 ML IV SCH ×2 (09:56→21:37)
[2019-07-25] MEDS: INSULIN GLARGINE 100 UNIT/ML SUBCUT SCH (10:33)
[2019-07-25] MEDS: AZITHROMYCIN INJ 250 MG in SODIUM CHLORIDE 0.9% 250 ML IV SCH (10:34)
[2019-07-25] MEDS: ONDANSETRON 4 MG/2 ML VIAL IV PRN (16:04)
[2019-07-25] MEDS: SIMVASTATIN 20 MG TABLET PO SCH (21:11)
[2019-07-25] MEDS: ENOXAPARIN 40 MG/0.4 ML SYRINGE SUBCUT SCH (21:44)
[2019-07-26] MEDS: ALBUTEROL/IPRATROPIUM 3 ML NEB RESP TX SCH ×4 (02:10→19:18)
[2019-07-26] MEDS: INSULIN REGULAR 100 UNIT/ML SUBCUT SCH ×5 (02:12→17:03)
[2019-07-26] MEDS: methylPREDNISolone SOD SUC 40 MG/1 ML VIAL IV SCH ×4 (04:10→20:08)
[2019-07-26 06:41] LABS: Osmolality,Calculated 283.4 MOS/KG (273-304)
[2019-07-26] MEDS: BUDESONIDE 0.25 MG/2 ML NEB RESP TX SCH ×2 (08:11→19:18)
[2019-07-26] MEDS: ASPIRIN EC 81 MG TABLET PO SCH (09:50)
[2019-07-26] MEDS: DOCUSATE SODIUM 100 MG CAPSULE PO SCH ×2 (09:50→20:10)
[2019-07-26] MEDS: SUCRALFATE 1 GM TABLET PO SCH ×2 (09:50→20:10)
[2019-07-26] MEDS: MAGNESIUM OXIDE 400 MG TABLET PO SCH ×2 (09:50→20:10)
[2019-07-26] MEDS: THEOPHYLLINE ER 300 MG TABLET PO SCH ×2 (09:51→20:10)
[2019-07-26] MEDS: PANTOPRAZOLE 40 MG TABLET PO SCH (09:51)
[2019-07-26] MEDS: POTASSIUM CHLORIDE 20 MEQ TABLET PO SCH ×2 (09:51→20:10)
[2019-07-26] MEDS: GEMFIBROZIL 600 MG TABLET PO SCH ×2 (09:51→20:10)
[2019-07-26] MEDS: DEXTROSE 5% 1,000 ML IV SCH ×2 (09:52→23:18)
[2019-07-26] MEDS: SERTRALINE 25 MG TABLET PO SCH (09:52)
[2019-07-26] MEDS: CHOLECALCIFEROL 1,000 UNIT TABLET PO SCH (09:52)
[2019-07-26] MEDS: CARVEDILOL 25 MG TABLET PO SCH ×2 (09:52→17:03)
[2019-07-26] MEDS: FUROSEMIDE 40 MG TABLET PO SCH (09:52)
[2019-07-26] MEDS: NICOTINE 14 MG/24 HR PATCH TRANSDERM SCH (09:52)
[2019-07-26] MEDS: LACTULOSE 20 GM/30 ML UDCUP PO SCH ×2 (09:53→20:11)
[2019-07-26] MEDS: ONDANSETRON 4 MG/2 ML VIAL IV PRN ×3 (09:53→23:14)
[2019-07-26] MEDS: INSULIN GLARGINE 100 UNIT/ML SUBCUT SCH (09:54)
[2019-07-26] MEDS: AZITHROMYCIN INJ 250 MG in SODIUM CHLORIDE 0.9% 250 ML IV SCH (11:39)
[2019-07-26] MEDS: ENOXAPARIN 40 MG/0.4 ML SYRINGE SUBCUT SCH (20:08)
[2019-07-26] MEDS: SIMVASTATIN 20 MG TABLET PO SCH (20:11)
[2019-07-27] MEDS: INSULIN REGULAR 100 UNIT/ML SUBCUT SCH ×4 (01:14→17:40)
[2019-07-27] MEDS: ALBUTEROL/IPRATROPIUM 3 ML NEB RESP TX SCH ×4 (01:40→20:35)
[2019-07-27] MEDS: methylPREDNISolone SOD SUC 40 MG/1 ML VIAL IV SCH ×3 (03:43→16:25)
[2019-07-27 06:09] LABS: Basophils % 0.1 % (0.0-0.8); Hematocrit 43.2 VOL% (35.7-47.0); Immature Granulocytes % 0.9 %; Lymphocytes # 1.7 10*3/uL (1.4-4.0); Lymphocytes % 14.9 % (21.3-54.2); Mean Corpuscular HGB Conc 32.4 GM/DL (32-36); Mean Corpuscular Volume 90.8 FL (87-102); Mean Platelet Volume 11.2 FL (9.6-12.0); Monocytes % 8.3 % (1.7-12.7); Neutrophils % 75.8 % (38.7-73.9); Platelet Count 270 T/CUMM (130-400); Red Blood Count 4.76 MC/CUMM (3.8-5.5); Red Cell Distribution Width 12.2 % (9.3-17.3); White Blood Count 11.4 T/CUMM (4-12)
[2019-07-27 06:14] LABS: Calcium 9.5 MG/DL (8.5-10.1); Osmolality,Calculated 277.8 MOS/KG (273-304)
[2019-07-27] MEDS: ONDANSETRON 4 MG/2 ML VIAL IV PRN ×2 (06:21→12:37)
[2019-07-27] MEDS: BUDESONIDE 0.25 MG/2 ML NEB RESP TX SCH ×2 (07:49→20:35)
[2019-07-27] MEDS: LACTULOSE 20 GM/30 ML UDCUP PO SCH ×2 (09:01→20:14)
[2019-07-27] MEDS: DOCUSATE SODIUM 100 MG CAPSULE PO SCH ×2 (09:02→20:14)
[2019-07-27] MEDS: POTASSIUM CHLORIDE 20 MEQ TABLET PO SCH ×2 (09:02→20:14)
[2019-07-27] MEDS: GEMFIBROZIL 600 MG TABLET PO SCH ×2 (09:02→20:13)
[2019-07-27] MEDS: CHOLECALCIFEROL 1,000 UNIT TABLET PO SCH (09:02)
[2019-07-27] MEDS: PANTOPRAZOLE 40 MG TABLET PO SCH (09:02)
[2019-07-27] MEDS: FUROSEMIDE 40 MG TABLET PO SCH (09:02)
[2019-07-27] MEDS: SERTRALINE 25 MG TABLET PO SCH (09:02)
[2019-07-27] MEDS: CARVEDILOL 25 MG TABLET PO SCH ×2 (09:02→16:25)
[2019-07-27] MEDS: SUCRALFATE 1 GM TABLET PO SCH ×2 (09:02→20:13)
[2019-07-27] MEDS: MAGNESIUM OXIDE 400 MG TABLET PO SCH ×2 (09:02→20:13)
[2019-07-27] MEDS: THEOPHYLLINE ER 300 MG TABLET PO SCH ×2 (09:03→20:13)
[2019-07-27] MEDS: ASPIRIN EC 81 MG TABLET PO SCH (09:03)
[2019-07-27] MEDS: NICOTINE 14 MG/24 HR PATCH TRANSDERM SCH (09:03)
[2019-07-27] MEDS: INSULIN GLARGINE 100 UNIT/ML SUBCUT SCH (09:07)
[2019-07-27] MEDS: DEXTROSE 5% 1,000 ML IV SCH (11:18)
[2019-07-27] MEDS: AZITHROMYCIN INJ 250 MG in SODIUM CHLORIDE 0.9% 250 ML IV SCH (11:18)
[2019-07-27] MEDS: PREGABALIN 100 MG CAPSULE PO PRN ×2 (14:30→20:13)
[2019-07-27] MEDS: cycloSPORINE OPH EMUL 1 VIAL BOTH EYES PRN (16:25)
[2019-07-27] MEDS: SIMVASTATIN 20 MG TABLET PO SCH (20:13)
[2019-07-27] MEDS: ENOXAPARIN 40 MG/0.4 ML SYRINGE SUBCUT SCH (20:14)
[2019-07-28] MEDS: DEXTROSE 5% 1,000 ML IV SCH (00:13)
[2019-07-28] MEDS: INSULIN REGULAR 100 UNIT/ML SUBCUT SCH ×5 (00:13→23:27)
[2019-07-28] MEDS: methylPREDNISolone SOD SUC 40 MG/1 ML VIAL IV SCH ×3 (02:03→16:57)
[2019-07-28] MEDS: ALBUTEROL/IPRATROPIUM 3 ML NEB RESP TX SCH ×4 (02:12→20:10)
[2019-07-28] MEDS: BUDESONIDE 0.25 MG/2 ML NEB RESP TX SCH ×2 (07:14→20:10)
[2019-07-28] MEDS: INSULIN GLARGINE 100 UNIT/ML SUBCUT SCH (09:13)
[2019-07-28] MEDS: ASPIRIN EC 81 MG TABLET PO SCH (09:14)
[2019-07-28] MEDS: FUROSEMIDE 40 MG TABLET PO SCH (09:14)
[2019-07-28] MEDS: PREGABALIN 100 MG CAPSULE PO PRN ×2 (09:14→17:38)
[2019-07-28] MEDS: THEOPHYLLINE ER 300 MG TABLET PO SCH ×2 (09:14→20:35)
[2019-07-28] MEDS: MAGNESIUM OXIDE 400 MG TABLET PO SCH ×2 (09:14→20:34)
[2019-07-28] MEDS: CARVEDILOL 25 MG TABLET PO SCH ×2 (09:15→16:57)
[2019-07-28] MEDS: NICOTINE 14 MG/24 HR PATCH TRANSDERM SCH (09:15)
[2019-07-28] MEDS: LACTULOSE 20 GM/30 ML UDCUP PO SCH ×2 (09:15→20:35)
[2019-07-28] MEDS: CHOLECALCIFEROL 1,000 UNIT TABLET PO SCH (09:15)
[2019-07-28] MEDS: DOCUSATE SODIUM 100 MG CAPSULE PO SCH ×2 (09:15→20:34)
[2019-07-28] MEDS: POTASSIUM CHLORIDE 20 MEQ TABLET PO SCH ×2 (09:15→20:34)
[2019-07-28] MEDS: SERTRALINE 25 MG TABLET PO SCH (09:15)
[2019-07-28] MEDS: SUCRALFATE 1 GM TABLET PO SCH ×2 (09:15→20:34)
[2019-07-28] MEDS: ONDANSETRON 4 MG/2 ML VIAL IV PRN ×2 (09:15→17:42)
[2019-07-28] MEDS: GEMFIBROZIL 600 MG TABLET PO SCH ×2 (09:15→20:34)
[2019-07-28] MEDS: PANTOPRAZOLE 40 MG TABLET PO SCH (09:16)
[2019-07-28] MEDS: AZITHROMYCIN INJ 250 MG in SODIUM CHLORIDE 0.9% 250 ML IV SCH (09:17)
[2019-07-28] MEDS: SIMVASTATIN 20 MG TABLET PO SCH (20:35)
[2019-07-28] MEDS: cycloSPORINE OPH EMUL 1 VIAL BOTH EYES PRN (20:35)
[2019-07-28] MEDS: ENOXAPARIN 40 MG/0.4 ML SYRINGE SUBCUT SCH (20:35)
[2019-07-29] MEDS: ALBUTEROL/IPRATROPIUM 3 ML NEB RESP TX SCH ×4 (01:47→19:21)
[2019-07-29] MEDS: INSULIN REGULAR 100 UNIT/ML SUBCUT SCH ×4 (05:57→23:43)
[2019-07-29] MEDS: BUDESONIDE 0.25 MG/2 ML NEB RESP TX SCH ×2 (07:47→19:21)
[2019-07-29] MEDS: MAGNESIUM OXIDE 400 MG TABLET PO SCH ×2 (09:20→23:04)
[2019-07-29] MEDS: ASPIRIN EC 81 MG TABLET PO SCH (09:20)
[2019-07-29] MEDS: FUROSEMIDE 40 MG TABLET PO SCH (09:20)
[2019-07-29] MEDS: CARVEDILOL 25 MG TABLET PO SCH ×2 (09:20→17:31)
[2019-07-29] MEDS: SUCRALFATE 1 GM TABLET PO SCH ×2 (09:20→23:04)
[2019-07-29] MEDS: SERTRALINE 25 MG TABLET PO SCH (09:21)
[2019-07-29] MEDS: POTASSIUM CHLORIDE 20 MEQ TABLET PO SCH ×2 (09:21→23:04)
[2019-07-29] MEDS: CHOLECALCIFEROL 1,000 UNIT TABLET PO SCH (09:21)
[2019-07-29] MEDS: GEMFIBROZIL 600 MG TABLET PO SCH ×2 (09:21→23:04)
[2019-07-29] MEDS: DOCUSATE SODIUM 100 MG CAPSULE PO SCH ×2 (09:21→23:04)
[2019-07-29] MEDS: PANTOPRAZOLE 40 MG TABLET PO SCH (09:21)
[2019-07-29] MEDS: THEOPHYLLINE ER 300 MG TABLET PO SCH ×2 (09:21→23:04)
[2019-07-29] MEDS: methylPREDNISolone SOD SUC 40 MG/1 ML VIAL IV SCH ×3 (09:22→17:31)
[2019-07-29] MEDS: cycloSPORINE OPH EMUL 1 VIAL BOTH EYES PRN (09:22)
[2019-07-29] MEDS: INSULIN GLARGINE 100 UNIT/ML SUBCUT SCH (09:22)
[2019-07-29] MEDS: LACTULOSE 20 GM/30 ML UDCUP PO SCH ×2 (09:22→23:05)
[2019-07-29] MEDS: PREGABALIN 100 MG CAPSULE PO PRN ×2 (09:24→23:29)
[2019-07-29] MEDS: NICOTINE 14 MG/24 HR PATCH TRANSDERM SCH (09:24)
[2019-07-29] MEDS: AZITHROMYCIN INJ 250 MG in SODIUM CHLORIDE 0.9% 250 ML IV SCH (09:28)
[2019-07-29] MEDS: SIMVASTATIN 20 MG TABLET PO SCH (23:04)
[2019-07-29] MEDS: ENOXAPARIN 40 MG/0.4 ML SYRINGE SUBCUT SCH (23:05)
[2019-07-29] MEDS: ONDANSETRON 4 MG/2 ML VIAL IV PRN (23:17)
[2019-07-30] MEDS: ALBUTEROL/IPRATROPIUM 3 ML NEB RESP TX SCH ×4 (00:28→19:36)
[2019-07-30] MEDS: methylPREDNISolone SOD SUC 40 MG/1 ML VIAL IV SCH ×3 (02:16→16:27)
[2019-07-30 05:30] LABS: Basophils # 0.1 10*3/uL (0.0-0.2); Basophils % 0.4 % (0.0-0.8); Hematocrit 44.6 VOL% (35.7-47.0); Hemoglobin 14.3 GM/DL (12.0-16.0); Immature Granulocytes % 3.9 %; Immature Granulocytes Absolute 0.85 #; Lymphocytes # 1.8 10*3/uL (1.4-4.0); Mean Corpuscular HGB Conc 32.1 GM/DL (32-36); Mean Corpuscular Volume 93.3 FL (87-102); Mean Platelet Volume 10.6 FL (9.6-12.0); Monocytes % 8.4 % (1.7-12.7); Neutrophils % 79.3 % (38.7-73.9); Platelet Count 358 T/CUMM (130-400); Red Blood Count 4.78 MC/CUMM (3.8-5.5); Red Cell Distribution Width 12.2 % (9.3-17.3); White Blood Count 22.1 T/CUMM (4-12)
[2019-07-30 06:04] LABS: Hypochromasia Slight; Lymphocytes 3 % (20-55); Ovalocytes Slight; Platelet Estimate Adequate; Segmented Neutrophils 89 % (50-85); Total Cells Counted 100
[2019-07-30 06:08] LABS: Albumin 3.2 G/DL (3.4-5.0); Bilirubin,Total 1.3 MG/DL (0.2-1.0); Calcium 9.2 MG/DL (8.5-10.1); Osmolality,Calculated 287.8 MOS/KG (273-304); Total Protein 6.3 G/DL (6.4-8.3)
[2019-07-30] MEDS: INSULIN REGULAR 100 UNIT/ML SUBCUT SCH ×3 (06:18→18:18)
[2019-07-30] MEDS ORDERED: MEPERIDINE 50 MG/1 ML VIAL IM ONE (07:00)
[2019-07-30] MEDS ORDERED: PROMETHAZINE 25 MG/1 ML VIAL IM ONE (07:00)
[2019-07-30] MEDS ORDERED: MIDAZOLAM 2 MG/2 ML VIAL ONE (07:06)
[2019-07-30] MEDS ORDERED: LIDOCAINE 2% VISCOUS 100 ML BOTTLE SWISH/SPIT ONE (07:30)
[2019-07-30] MEDS: BUDESONIDE 0.25 MG/2 ML NEB RESP TX SCH ×2 (07:30→19:36)
[2019-07-30] MEDS ORDERED: LIDOCAINE 2% 20 ML VIAL RESP TX ONE (07:30)
[2019-07-30] MEDS ORDERED: MIDAZOLAM 2 MG/2 ML VIAL IV ONE (07:30)
[2019-07-30] MEDS ORDERED: LIDOCAINE 1% 20 ML VIAL MISC INJ ONE (07:30)
[2019-07-30] MEDS: SUCRALFATE 1 GM TABLET PO SCH ×2 (08:18→21:14)
[2019-07-30] MEDS: ASPIRIN EC 81 MG TABLET PO SCH (08:18)
[2019-07-30] MEDS: DOCUSATE SODIUM 100 MG CAPSULE PO SCH ×2 (08:19→21:15)
[2019-07-30] MEDS: PANTOPRAZOLE 40 MG TABLET PO SCH (08:19)
[2019-07-30] MEDS: CHOLECALCIFEROL 1,000 UNIT TABLET PO SCH (08:19)
[2019-07-30] MEDS: MAGNESIUM OXIDE 400 MG TABLET PO SCH ×2 (08:19→21:15)
[2019-07-30] MEDS: FUROSEMIDE 40 MG TABLET PO SCH (08:19)
[2019-07-30] MEDS: POTASSIUM CHLORIDE 20 MEQ TABLET PO SCH ×2 (08:19→21:15)
[2019-07-30] MEDS: LACTULOSE 20 GM/30 ML UDCUP PO SCH ×2 (08:19→21:14)
[2019-07-30] MEDS: SERTRALINE 25 MG TABLET PO SCH (08:19)
[2019-07-30] MEDS: GEMFIBROZIL 600 MG TABLET PO SCH ×2 (08:19→21:15)
[2019-07-30] MEDS: NICOTINE 14 MG/24 HR PATCH TRANSDERM SCH (08:20)
[2019-07-30] MEDS: CARVEDILOL 25 MG TABLET PO SCH ×2 (08:20→16:27)
[2019-07-30] MEDS: INSULIN GLARGINE 100 UNIT/ML SUBCUT SCH (08:20)
[2019-07-30] MEDS: THEOPHYLLINE ER 300 MG TABLET PO SCH ×2 (08:21→21:15)
[2019-07-30] MEDS: AZITHROMYCIN INJ 250 MG in SODIUM CHLORIDE 0.9% 250 ML IV SCH (09:25)
[2019-07-30] MEDS: PREGABALIN 100 MG CAPSULE PO PRN (21:13)
[2019-07-30] MEDS: ACETAMINOPHEN 325 MG TABLET PO PRN (21:13)
[2019-07-30] MEDS: ENOXAPARIN 40 MG/0.4 ML SYRINGE SUBCUT SCH (21:14)
[2019-07-30] MEDS: SIMVASTATIN 20 MG TABLET PO SCH (21:15)
[2019-07-31] MEDS: ALBUTEROL/IPRATROPIUM 3 ML NEB RESP TX SCH ×4 (00:19→19:05)
[2019-07-31] MEDS: INSULIN REGULAR 100 UNIT/ML SUBCUT SCH ×4 (00:53→18:29)
[2019-07-31] MEDS: methylPREDNISolone SOD SUC 40 MG/1 ML VIAL IV SCH (00:56)
[2019-07-31] MEDS: ONDANSETRON 4 MG/2 ML VIAL IV PRN (00:56)
[2019-07-31 05:48] LABS: Basophils % 0.3 % (0.0-0.8); Eosinophils % 0.3 % (0.00-10.9); Hematocrit 39.7 VOL% (35.7-47.0); Hemoglobin 12.6 GM/DL (12.0-16.0); Immature Granulocytes % 4.4 %; Immature Granulocytes Absolute 0.51 #; Lymphocytes # 1.8 10*3/uL (1.4-4.0); Lymphocytes % 15.3 % (21.3-54.2); Mean Corpuscular HGB Conc 31.7 GM/DL (32-36); Mean Corpuscular Volume 93.9 FL (87-102); Mean Platelet Volume 11.6 FL (9.6-12.0); Monocytes % 8.4 % (1.7-12.7); Neutrophils % 71.3 % (38.7-73.9); Platelet Count 152 T/CUMM (130-400); Red Blood Count 4.23 MC/CUMM (3.8-5.5); Red Cell Distribution Width 12.6 % (9.3-17.3); White Blood Count 11.7 T/CUMM (4-12)
[2019-07-31 06:01] LABS: Calcium 9.1 MG/DL (8.5-10.1); Osmolality,Calculated 289.5 MOS/KG (273-304)
[2019-07-31 06:16] LABS: Band Neutrophils 1 % (0-10); Hypochromasia 1+; Lymphocytes 15 % (20-55); Microcytosis Slight; Segmented Neutrophils 80 % (50-85); Total Cells Counted 100
[2019-07-31 06:17] LABS: Platelet Estimate Adequate
[2019-07-31] MEDS: BUDESONIDE 0.25 MG/2 ML NEB RESP TX SCH ×2 (07:05→19:05)
[2019-07-31] MEDS: THEOPHYLLINE ER 300 MG TABLET PO SCH ×2 (09:39→21:51)
[2019-07-31] MEDS: PANTOPRAZOLE 40 MG TABLET PO SCH (09:39)
[2019-07-31] MEDS: SUCRALFATE 1 GM TABLET PO SCH ×2 (09:39→21:52)
[2019-07-31] MEDS: LACTULOSE 20 GM/30 ML UDCUP PO SCH ×2 (09:39→21:52)
[2019-07-31] MEDS: NICOTINE 14 MG/24 HR PATCH TRANSDERM SCH (09:39)
[2019-07-31] MEDS: FUROSEMIDE 40 MG TABLET PO SCH (09:40)
[2019-07-31] MEDS: CHOLECALCIFEROL 1,000 UNIT TABLET PO SCH (09:40)
[2019-07-31] MEDS: INSULIN GLARGINE 100 UNIT/ML SUBCUT SCH (09:40)
[2019-07-31] MEDS: SERTRALINE 25 MG TABLET PO SCH (09:40)
[2019-07-31] MEDS: GEMFIBROZIL 600 MG TABLET PO SCH ×2 (09:40→21:52)
[2019-07-31] MEDS: DOCUSATE SODIUM 100 MG CAPSULE PO SCH ×2 (09:40→21:52)
[2019-07-31] MEDS: ASPIRIN EC 81 MG TABLET PO SCH (09:40)
[2019-07-31] MEDS: MAGNESIUM OXIDE 400 MG TABLET PO SCH ×2 (09:40→21:52)
[2019-07-31] MEDS: POTASSIUM CHLORIDE 20 MEQ TABLET PO SCH ×2 (09:40→21:51)
[2019-07-31] MEDS: CARVEDILOL 25 MG TABLET PO SCH ×2 (09:40→17:09)
[2019-07-31] MEDS: predniSONE 20 MG TABLET PO SCH (09:40)
[2019-07-31] MEDS ORDERED: INSULIN GLARGINE 100 UNIT/ML SUBCUT SCH (20:39)
[2019-07-31] MEDS ORDERED: INSULIN REGULAR 100 UNIT/ML SUBCUT ONE (20:47)
[2019-07-31] MEDS: GLIMEPIRIDE 2 MG TABLET PO SCH (21:51)
[2019-07-31] MEDS: SIMVASTATIN 20 MG TABLET PO SCH (21:52)
[2019-07-31] MEDS: ENOXAPARIN 40 MG/0.4 ML SYRINGE SUBCUT SCH (21:52)
[2019-07-31] MEDS: PREGABALIN 100 MG CAPSULE PO PRN (21:54)
[2019-07-31] MEDS ORDERED: PANTOPRAZOLE 40 MG TABLET PO ONE (22:12)
[2019-08-01] MEDS: ALBUTEROL/IPRATROPIUM 3 ML NEB RESP TX SCH ×4 (00:05→19:43)
[2019-08-01] MEDS ORDERED: ALUM/MAG/SIMETH/LIDO VISC 1:1 30 ML BOTTLE PO ONE (00:58)
[2019-08-01] MEDS: INSULIN REGULAR 100 UNIT/ML SUBCUT SCH ×5 (01:03→23:24)
[2019-08-01 04:56] LABS: Basophils # 0.1 10*3/uL (0.0-0.2); Basophils % 0.5 % (0.0-0.8); Eosinophils % 0.1 % (0.00-10.9); Hematocrit 42.6 VOL% (35.7-47.0); Hemoglobin 13.6 GM/DL (12.0-16.0); Immature Granulocytes % 5.3 %; Immature Granulocytes Absolute 1.28 #; Lymphocytes # 4.8 10*3/uL (1.4-4.0); Lymphocytes % 19.9 % (21.3-54.2); Mean Corpuscular HGB Conc 31.9 GM/DL (32-36); Mean Corpuscular Volume 93.2 FL (87-102); Mean Platelet Volume 10.6 FL (9.6-12.0); Monocytes % 13.6 % (1.7-12.7); Neutrophils % 60.6 % (38.7-73.9); Platelet Count 341 T/CUMM (130-400); Red Blood Count 4.57 MC/CUMM (3.8-5.5); Red Cell Distribution Width 12.5 % (9.3-17.3)
[2019-08-01 05:09] LABS: Calcium 10.3 MG/DL (8.5-10.1); Osmolality,Calculated 286.1 MOS/KG (273-304)
[2019-08-01 05:25] LABS: Atypical Lymphocytes Few; Hypochromasia Slight; Lymphocytes 18 % (20-55); Microcytosis Slight; Segmented Neutrophils 72 % (50-85); Total Cells Counted 100
[2019-08-01 05:26] LABS: Platelet Estimate Normal
[2019-08-01] MEDS: BUDESONIDE 0.25 MG/2 ML NEB RESP TX SCH (07:04)
[2019-08-01] MEDS: LACTULOSE 20 GM/30 ML UDCUP PO SCH ×2 (08:28→20:46)
[2019-08-01] MEDS: GEMFIBROZIL 600 MG TABLET PO SCH ×2 (08:29→20:47)
[2019-08-01] MEDS: GLIMEPIRIDE 2 MG TABLET PO SCH ×2 (08:29→17:18)
[2019-08-01] MEDS: ASPIRIN EC 81 MG TABLET PO SCH (08:29)
[2019-08-01] MEDS: POTASSIUM CHLORIDE 20 MEQ TABLET PO SCH ×2 (08:29→20:46)
[2019-08-01] MEDS: PANTOPRAZOLE 40 MG TABLET PO SCH (08:29)
[2019-08-01] MEDS: PREGABALIN 100 MG CAPSULE PO PRN ×3 (08:29→20:46)
[2019-08-01] MEDS: predniSONE 20 MG TABLET PO SCH (08:29)
[2019-08-01] MEDS: SUCRALFATE 1 GM TABLET PO SCH ×2 (08:29→20:48)
[2019-08-01] MEDS: MAGNESIUM OXIDE 400 MG TABLET PO SCH ×2 (08:29→20:46)
[2019-08-01] MEDS: FUROSEMIDE 40 MG TABLET PO SCH (08:29)
[2019-08-01] MEDS: SERTRALINE 25 MG TABLET PO SCH (08:29)
[2019-08-01] MEDS: THEOPHYLLINE ER 300 MG TABLET PO SCH ×2 (08:29→20:47)
[2019-08-01] MEDS: DOCUSATE SODIUM 100 MG CAPSULE PO SCH ×2 (08:29→20:47)
[2019-08-01] MEDS: CHOLECALCIFEROL 1,000 UNIT TABLET PO SCH (08:29)
[2019-08-01] MEDS: CARVEDILOL 25 MG TABLET PO SCH ×2 (08:29→17:18)
[2019-08-01] MEDS: NICOTINE 14 MG/24 HR PATCH TRANSDERM SCH (08:30)
[2019-08-01] MEDS: methylPREDNISolone SOD SUC 40 MG/1 ML VIAL IV SCH (18:58)
[2019-08-01] MEDS: SIMVASTATIN 20 MG TABLET PO SCH (20:47)
[2019-08-01] MEDS: ENOXAPARIN 40 MG/0.4 ML SYRINGE SUBCUT SCH (20:48)
[2019-08-01] MEDS: ONDANSETRON 4 MG/2 ML VIAL IV PRN (20:54)
[2019-08-01] MEDS ORDERED: INSULIN GLARGINE 100 UNIT/ML SUBCUT SCH (22:07)
[2019-08-01] MEDS ORDERED: SODIUM CHLORIDE 0.45% 1,000 ML IV SCH (22:30)
[2019-08-02] MEDS: BUDESONIDE 0.25 MG/2 ML NEB RESP TX SCH ×2 (01:49→07:10)
[2019-08-02] MEDS: ALBUTEROL/IPRATROPIUM 3 ML NEB RESP TX SCH ×3 (01:49→12:06)
[2019-08-02] MEDS: INSULIN REGULAR 100 UNIT/ML SUBCUT SCH ×3 (05:44→14:00)
[2019-08-02] MEDS: methylPREDNISolone SOD SUC 40 MG/1 ML VIAL IV SCH (05:45)
[2019-08-02 06:01] LABS: Basophils % 0.2 % (0.0-0.8); Eosinophils # 0.1 10*3/uL (0.0-0.87); Eosinophils % 0.5 % (0.00-10.9); Hematocrit 43.9 VOL% (35.7-47.0); Immature Granulocytes % 3.7 %; Immature Granulocytes Absolute 0.75 #; Lymphocytes # 4.6 10*3/uL (1.4-4.0); Lymphocytes % 22.8 % (21.3-54.2); Mean Corpuscular HGB Conc 31.9 GM/DL (32-36); Mean Corpuscular Volume 94.8 FL (87-102); Mean Platelet Volume 10.5 FL (9.6-12.0); Monocytes % 12.1 % (1.7-12.7); Neutrophils % 60.7 % (38.7-73.9); Platelet Count 324 T/CUMM (130-400); Red Blood Count 4.63 MC/CUMM (3.8-5.5); Red Cell Distribution Width 12.6 % (9.3-17.3); White Blood Count 20.2 T/CUMM (4-12)
[2019-08-02 06:34] LABS: Hypochromasia 1+; Lymphocytes 16 % (20-55); Microcytosis Slight; Platelet Estimate Adequate; Segmented Neutrophils 74 % (50-85); Total Cells Counted 100
[2019-08-02 07:12] LABS: Bilirubin,Total 0.4 MG/DL (0.2-1.0); Osmolality,Calculated 283.8 MOS/KG (273-304); Total Protein 6.3 G/DL (6.4-8.3)
[2019-08-02] MEDS: GLIMEPIRIDE 2 MG TABLET PO SCH (08:52)
[2019-08-02] MEDS: MAGNESIUM OXIDE 400 MG TABLET PO SCH (08:52)
[2019-08-02] MEDS: PANTOPRAZOLE 40 MG TABLET PO SCH (08:52)
[2019-08-02] MEDS: ASPIRIN EC 81 MG TABLET PO SCH (08:52)
[2019-08-02] MEDS: SUCRALFATE 1 GM TABLET PO SCH (08:52)
[2019-08-02] MEDS: POTASSIUM CHLORIDE 20 MEQ TABLET PO SCH (08:53)
[2019-08-02] MEDS: DOCUSATE SODIUM 100 MG CAPSULE PO SCH (08:53)
[2019-08-02] MEDS: GEMFIBROZIL 600 MG TABLET PO SCH (08:53)
[2019-08-02] MEDS: SERTRALINE 25 MG TABLET PO SCH (08:54)
[2019-08-02] MEDS: FUROSEMIDE 40 MG TABLET PO SCH (08:54)
[2019-08-02] MEDS: predniSONE 20 MG TABLET PO SCH (08:54)
[2019-08-02] MEDS: CARVEDILOL 25 MG TABLET PO SCH (08:54)
[2019-08-02] MEDS: THEOPHYLLINE ER 300 MG TABLET PO SCH (08:54)
[2019-08-02] MEDS: LACTULOSE 20 GM/30 ML UDCUP PO SCH (08:55)
[2019-08-02] MEDS: NICOTINE 14 MG/24 HR PATCH TRANSDERM SCH (08:55)
[2019-08-02] MEDS: cycloSPORINE OPH EMUL 1 VIAL BOTH EYES PRN (08:55)
[2019-08-02] MEDS: PREGABALIN 100 MG CAPSULE PO PRN (09:47)
[2019-08-02] MEDS: ONDANSETRON 4 MG/2 ML VIAL IV PRN (09:47)
[2019-08-02 12:23] VITALS: BP 117/59
== END 2019-08-02 15:34 | disposition home health service (06) | DRG 190 ==
LOC: N.ED 12:49 → N.EDINP 15:12 → N.5E 17:06
PROVIDERS: ADMIT Internal Medicine; ATTEND Internal Medicine

== ENCOUNTER 2020-08-20 00:25 | Inpatient (IN) ==
[2020-08-20 01:02] LABS: Basophils % 0.1 % (0.0-0.8); Hematocrit 43.4 VOL% (35.7-47.0); Hemoglobin 13.9 GM/DL (12.0-16.0); Immature Granulocytes % 0.4 %; Immature Granulocytes Absolute 0.03 #; Lymphocytes # 1.4 10*3/uL (1.4-4.0); Lymphocytes % 16.9 % (21.3-54.2); Mean Corpuscular Volume 94.3 FL (87-102); Mean Platelet Volume 12.2 FL (9.6-12.0); Monocytes % 8.1 % (1.7-12.7); Neutrophils % 74.5 % (38.7-73.9); Platelet Count 236 T/CUMM (130-400); Red Cell Distribution Width 12.7 % (9.3-17.3); White Blood Count 8.2 T/CUMM (4-12)
[2020-08-20 01:18] LABS: Albumin 3.6 G/DL (3.4-5.0); Bilirubin,Total 0.8 MG/DL (0.2-1.0); Calcium 9.6 MG/DL (8.5-10.1); Osmolality,Calculated 308.8 MOS/KG (273-304); Total Protein 6.7 G/DL (6.4-8.3)
[2020-08-20 01:22] LABS: INR 1.1; PT Patient Result 11.4 SECS (9.8-11.9); Partial Thromboplastin Time 21.9 SECS (23.9-33.8)
[2020-08-20] MEDS ORDERED: INSULIN REGULAR 100 UNIT/ML IV STA ×2 (01:34→05:17)
[2020-08-20] MEDS ORDERED: SODIUM CHLORIDE 0.9% 1,000 ML IV STA (01:35)
[2020-08-20] MEDS ORDERED: GLUCAGON 1 MG VIAL IM PRN ×2 (02:42→10:10)
[2020-08-20] MEDS ORDERED: DEXTROSE 50% 25 GM/50 ML VIAL IV PRN ×2 (02:42→10:10)
[2020-08-20] MEDS ORDERED: DEXTROSE 50% 25 GM/50 ML SYRINGE IV PRN (02:45)
[2020-08-20] MEDS: SODIUM CHLORIDE 0.9% 1,000 ML IV SCH ×3 (04:46→17:58)
[2020-08-20] MEDS: BUDESONIDE 0.25 MG/2 ML NEB RESP TX SCH ×2 (09:53→19:09)
[2020-08-20] MEDS: ALBUTEROL/IPRATROPIUM 3 ML NEB RESP TX SCH ×3 (09:53→19:09)
[2020-08-20] MEDS ORDERED: AZITHROMYCIN INJ 250 MG in SODIUM CHLORIDE 0.9% 250 ML IV SCH (10:30)
[2020-08-20] MEDS: methylPREDNISolone SOD SUC 40 MG/1 ML VIAL IV SCH ×2 (10:36→21:37)
[2020-08-20] MEDS: cefTRIAXone 500 MG in SYRINGE 1 EACH IV SCH (10:38)
[2020-08-20] MEDS: INSULIN REGULAR 100 UNIT/ML SUBCUT SCH ×3 (11:56→21:13)
[2020-08-20] MEDS ORDERED: INFLUENZA VIRUS VACCINE 0.5 ML SYRINGE IM ONE (14:53)
[2020-08-20] MEDS ORDERED: FUROSEMIDE 40 MG/4 ML VIAL IV ONE (17:46)
[2020-08-20] MEDS ORDERED: cycloSPORINE OPH EMUL 1 VIAL BOTH EYES PRN (17:47)
[2020-08-20] MEDS: carvediloL 25 MG TABLET PO SCH (19:10)
[2020-08-20] MEDS: GLIMEPIRIDE 2 MG TABLET PO SCH (19:10)
[2020-08-20] MEDS: SUCRALFATE 1 GM TABLET PO SCH (21:12)
[2020-08-20] MEDS: POTASSIUM CHLORIDE 20 MEQ TABLET PO SCH (21:12)
[2020-08-20] MEDS: SIMVASTATIN 10 MG TABLET PO SCH (21:13)
[2020-08-20] MEDS: DOCUSATE SODIUM 100 MG CAPSULE PO SCH (21:13)
[2020-08-20] MEDS: LACTULOSE 20 GM/30 ML UDCUP PO SCH (21:13)
[2020-08-20] MEDS: INSULIN GLARGINE 100 UNIT/ML SUBCUT SCH (21:14)
[2020-08-21] MEDS: ALBUTEROL/IPRATROPIUM 3 ML NEB RESP TX SCH ×4 (00:50→19:42)
[2020-08-21] MEDS: SODIUM CHLORIDE 0.9% 1,000 ML IV SCH ×3 (01:48→18:37)
[2020-08-21] MEDS ORDERED: NICOTINE 7 MG/24 HR PATCH TRANSDERM PRN (04:31)
[2020-08-21 06:01] LABS: Basophils % 0.1 % (0.0-0.8); Eosinophils % 0.4 % (0.00-10.9); Hematocrit 39.2 VOL% (35.7-47.0); Hemoglobin 12.9 GM/DL (12.0-16.0); Immature Granulocytes % 0.2 %; Immature Granulocytes Absolute 0.02 #; Lymphocytes % 23.7 % (21.3-54.2); Mean Corpuscular HGB Conc 32.9 GM/DL (32-36); Mean Corpuscular Volume 91.2 FL (87-102); Mean Platelet Volume 12.5 FL (9.6-12.0); Monocytes % 5.2 % (1.7-12.7); Neutrophils % 70.4 % (38.7-73.9); Platelet Count 213 T/CUMM (130-400); Red Cell Distribution Width 12.6 % (9.3-17.3); White Blood Count 8.2 T/CUMM (4-12)
[2020-08-21 06:27] LABS: Calcium 8.6 MG/DL (8.5-10.1); Osmolality,Calculated 293.3 MOS/KG (273-304)
[2020-08-21] MEDS: BUDESONIDE 0.25 MG/2 ML NEB RESP TX SCH (07:15)
[2020-08-21] MEDS ORDERED: FUROSEMIDE 40 MG/4 ML VIAL IV SCH (09:00)
[2020-08-21] MEDS: INSULIN REGULAR 100 UNIT/ML SUBCUT SCH ×4 (10:03→20:20)
[2020-08-21] MEDS: carvediloL 25 MG TABLET PO SCH ×2 (10:03→16:53)
[2020-08-21] MEDS: ASPIRIN EC 81 MG TABLET PO SCH (10:03)
[2020-08-21] MEDS: SUCRALFATE 1 GM TABLET PO SCH ×2 (10:03→20:21)
[2020-08-21] MEDS: INSULIN GLARGINE 100 UNIT/ML SUBCUT SCH ×2 (10:03→20:20)
[2020-08-21] MEDS: SERTRALINE 25 MG TABLET PO SCH (10:04)
[2020-08-21] MEDS: glyBURIDE 5 MG TABLET PO SCH (10:04)
[2020-08-21] MEDS: GLIMEPIRIDE 2 MG TABLET PO SCH ×2 (10:04→16:53)
[2020-08-21] MEDS: METOPROLOL SUCCINATE XL 25 MG TABLET PO SCH (10:04)
[2020-08-21] MEDS: DOCUSATE SODIUM 100 MG CAPSULE PO SCH ×2 (10:04→20:20)
[2020-08-21] MEDS: POTASSIUM CHLORIDE 20 MEQ TABLET PO SCH ×2 (10:04→20:21)
[2020-08-21] MEDS: LACTULOSE 20 GM/30 ML UDCUP PO SCH ×2 (10:04→20:19)
[2020-08-21] MEDS: methylPREDNISolone SOD SUC 40 MG/1 ML VIAL IV SCH ×2 (10:06→20:21)
[2020-08-21] MEDS: FLUTICASONE 50 MCG NASAL SPRAY 16 GM BOTTLE BOTH NARES SCH (10:10)
[2020-08-21] MEDS: AZITHROMYCIN INJ 500 MG in SODIUM CHLORIDE 0.9% 250 ML IV SCH (10:13)
[2020-08-21] MEDS: DORNASE ALFA 2.5 MG/2.5 ML VIAL RESP TX SCH ×2 (11:44→19:49)
[2020-08-21] MEDS: cefTRIAXone 500 MG in SYRINGE 1 EACH IV SCH (14:11)
[2020-08-21] MEDS: ONDANSETRON ODT 4 MG TABLET PO PRN (20:18)
[2020-08-21] MEDS: SIMVASTATIN 10 MG TABLET PO SCH (20:20)
[2020-08-22] MEDS: PREGABALIN 100 MG CAPSULE PO PRN (00:04)
[2020-08-22] MEDS: ALBUTEROL/IPRATROPIUM 3 ML NEB RESP TX SCH ×4 (00:23→19:36)
[2020-08-22] MEDS: ONDANSETRON ODT 4 MG TABLET PO PRN ×2 (03:08→12:02)
[2020-08-22] MEDS: SODIUM CHLORIDE 0.9% 1,000 ML IV SCH ×3 (03:10→21:46)
[2020-08-22 06:13] LABS: Calcium 8.1 MG/DL (8.5-10.1)
[2020-08-22] MEDS: DORNASE ALFA 2.5 MG/2.5 ML VIAL RESP TX SCH ×2 (07:48→19:36)
[2020-08-22] MEDS: GLIMEPIRIDE 2 MG TABLET PO SCH ×2 (09:28→16:50)
[2020-08-22] MEDS: SUCRALFATE 1 GM TABLET PO SCH ×2 (09:28→20:43)
[2020-08-22] MEDS: carvediloL 25 MG TABLET PO SCH ×2 (09:29→16:50)
[2020-08-22] MEDS: DOCUSATE SODIUM 100 MG CAPSULE PO SCH ×2 (09:29→20:43)
[2020-08-22] MEDS: SERTRALINE 25 MG TABLET PO SCH (09:29)
[2020-08-22] MEDS: METOPROLOL SUCCINATE XL 25 MG TABLET PO SCH (09:29)
[2020-08-22] MEDS: ASPIRIN EC 81 MG TABLET PO SCH (09:29)
[2020-08-22] MEDS: glyBURIDE 5 MG TABLET PO SCH (09:29)
[2020-08-22] MEDS: INSULIN REGULAR 100 UNIT/ML SUBCUT SCH ×4 (09:31→20:42)
[2020-08-22] MEDS: AZITHROMYCIN INJ 500 MG in SODIUM CHLORIDE 0.9% 250 ML IV SCH (09:31)
[2020-08-22] MEDS: methylPREDNISolone SOD SUC 40 MG/1 ML VIAL IV SCH ×2 (09:31→20:43)
[2020-08-22] MEDS: LACTULOSE 20 GM/30 ML UDCUP PO SCH ×2 (09:36→20:44)
[2020-08-22] MEDS: POTASSIUM CHLORIDE 20 MEQ TABLET PO SCH ×2 (09:50→20:43)
[2020-08-22] MEDS: FLUTICASONE 50 MCG NASAL SPRAY 16 GM BOTTLE BOTH NARES SCH (09:50)
[2020-08-22] MEDS: INSULIN GLARGINE 100 UNIT/ML SUBCUT SCH ×2 (09:51→20:46)
[2020-08-22] MEDS: cefTRIAXone 500 MG in SYRINGE 1 EACH IV SCH (12:01)
[2020-08-22] MEDS: SIMVASTATIN 10 MG TABLET PO SCH (20:43)
[2020-08-23] MEDS: ALBUTEROL/IPRATROPIUM 3 ML NEB RESP TX SCH ×4 (00:27→20:52)
[2020-08-23 05:18] LABS: Calcium 7.8 MG/DL (8.5-10.1)
[2020-08-23] MEDS: DORNASE ALFA 2.5 MG/2.5 ML VIAL RESP TX SCH ×2 (08:01→21:02)
[2020-08-23] MEDS: INSULIN REGULAR 100 UNIT/ML SUBCUT SCH ×4 (08:25→20:07)
[2020-08-23] MEDS: SUCRALFATE 1 GM TABLET PO SCH ×2 (09:32→20:06)
[2020-08-23] MEDS: METOPROLOL SUCCINATE XL 25 MG TABLET PO SCH (09:32)
[2020-08-23] MEDS: DOCUSATE SODIUM 100 MG CAPSULE PO SCH ×2 (09:32→20:06)
[2020-08-23] MEDS: POTASSIUM CHLORIDE 20 MEQ TABLET PO SCH ×2 (09:32→20:06)
[2020-08-23] MEDS: SERTRALINE 25 MG TABLET PO SCH (09:32)
[2020-08-23] MEDS: glyBURIDE 5 MG TABLET PO SCH (09:32)
[2020-08-23] MEDS: GLIMEPIRIDE 2 MG TABLET PO SCH ×2 (09:32→16:04)
[2020-08-23] MEDS: ASPIRIN EC 81 MG TABLET PO SCH (09:32)
[2020-08-23] MEDS: carvediloL 25 MG TABLET PO SCH ×2 (09:33→16:04)
[2020-08-23] MEDS: methylPREDNISolone SOD SUC 40 MG/1 ML VIAL IV SCH ×2 (09:35→20:06)
[2020-08-23] MEDS: FLUTICASONE 50 MCG NASAL SPRAY 16 GM BOTTLE BOTH NARES SCH (09:37)
[2020-08-23] MEDS: INSULIN GLARGINE 100 UNIT/ML SUBCUT SCH ×2 (09:37→20:07)
[2020-08-23] MEDS: ONDANSETRON ODT 4 MG TABLET PO PRN (09:38)
[2020-08-23] MEDS: AZITHROMYCIN INJ 500 MG in SODIUM CHLORIDE 0.9% 250 ML IV SCH (09:38)
[2020-08-23] MEDS: LACTULOSE 20 GM/30 ML UDCUP PO SCH ×2 (09:58→20:07)
[2020-08-23] MEDS: cefTRIAXone 500 MG in SYRINGE 1 EACH IV SCH (12:29)
[2020-08-23] MEDS ORDERED: guaiFENesin 200 MG/10 ML UDCUP PO PRN (15:09)
[2020-08-23] MEDS: BENZONATATE 100 MG CAPSULE PO PRN ×2 (16:04→22:18)
[2020-08-23] MEDS: SODIUM CHLORIDE 0.9% 1,000 ML IV SCH (16:04)
[2020-08-23] MEDS: SIMVASTATIN 10 MG TABLET PO SCH (20:06)
[2020-08-24] MEDS: ONDANSETRON ODT 4 MG TABLET PO PRN ×2 (00:47→15:50)
[2020-08-24] MEDS: ALBUTEROL/IPRATROPIUM 3 ML NEB RESP TX SCH ×4 (01:59→19:34)
[2020-08-24] MEDS: DORNASE ALFA 2.5 MG/2.5 ML VIAL RESP TX SCH ×2 (06:41→19:46)
[2020-08-24 07:19] LABS: Calcium 8.2 MG/DL (8.5-10.1); Osmolality,Calculated 287.6 MOS/KG (273-304)
[2020-08-24] MEDS ORDERED: MIDAZOLAM 2 MG/2 ML VIAL ONE (07:24)
[2020-08-24] MEDS ORDERED: PROMETHAZINE 25 MG/1 ML VIAL IM ONE (07:30)
[2020-08-24] MEDS ORDERED: GLYCOPYRROLATE 0.4 MG/2 ML VIAL IM ONE (07:30)
[2020-08-24] MEDS ORDERED: MEPERIDINE 50 MG/1 ML VIAL IM ONE (07:30)
[2020-08-24] MEDS ORDERED: MIDAZOLAM 2 MG/2 ML VIAL IV ONE (08:00)
[2020-08-24] MEDS ORDERED: LIDOCAINE 2% 20 ML VIAL RESP TX ONE (08:00)
[2020-08-24] MEDS ORDERED: LIDOCAINE 1% 20 ML VIAL MISC INJ ONE (08:00)
[2020-08-24] MEDS ORDERED: LIDOCAINE 2% VISCOUS 100 ML BOTTLE SWISH/SPIT ONE (08:00)
[2020-08-24] MEDS: INSULIN REGULAR 100 UNIT/ML SUBCUT SCH ×4 (08:24→21:30)
[2020-08-24] MEDS: INSULIN GLARGINE 100 UNIT/ML SUBCUT SCH ×2 (08:24→21:30)
[2020-08-24] MEDS: ASPIRIN EC 81 MG TABLET PO SCH (08:25)
[2020-08-24] MEDS: SUCRALFATE 1 GM TABLET PO SCH ×2 (10:48→21:30)
[2020-08-24] MEDS: SERTRALINE 25 MG TABLET PO SCH (10:48)
[2020-08-24] MEDS: POTASSIUM CHLORIDE 20 MEQ TABLET PO SCH ×2 (10:49→21:30)
[2020-08-24] MEDS: DOCUSATE SODIUM 100 MG CAPSULE PO SCH ×2 (10:49→21:30)
[2020-08-24] MEDS: METOPROLOL SUCCINATE XL 25 MG TABLET PO SCH (10:49)
[2020-08-24] MEDS: carvediloL 25 MG TABLET PO SCH ×2 (10:50→17:00)
[2020-08-24] MEDS: FLUTICASONE 50 MCG NASAL SPRAY 16 GM BOTTLE BOTH NARES SCH (10:50)
[2020-08-24] MEDS: LACTULOSE 20 GM/30 ML UDCUP PO SCH ×2 (10:54→21:30)
[2020-08-24] MEDS: AZITHROMYCIN INJ 500 MG in SODIUM CHLORIDE 0.9% 250 ML IV SCH (10:57)
[2020-08-24] MEDS: methylPREDNISolone SOD SUC 40 MG/1 ML VIAL IV SCH ×2 (10:59→21:30)
[2020-08-24] MEDS: GLIMEPIRIDE 2 MG TABLET PO SCH ×2 (11:24→17:00)
[2020-08-24] MEDS: glyBURIDE 5 MG TABLET PO SCH (11:24)
[2020-08-24] MEDS: cefTRIAXone 500 MG in SYRINGE 1 EACH IV SCH (12:17)
[2020-08-24] MEDS ORDERED: GLUCAGON 1 MG VIAL IM PRN (14:23)
[2020-08-24] MEDS ORDERED: DEXTROSE 50% 25 GM/50 ML VIAL IV PRN (14:23)
[2020-08-24] MEDS: SODIUM CHLORIDE 0.9% 1,000 ML IV SCH (16:59)
[2020-08-24] MEDS: SIMVASTATIN 10 MG TABLET PO SCH (21:30)
[2020-08-24] MEDS ORDERED: POTASSIUM CHLORIDE 20 MEQ TABLET PO PRN (22:45)
[2020-08-24] MEDS ORDERED: POTASSIUM CHLORIDE 20 MEQ TABLET PO ONE (23:00)
[2020-08-24] MEDS: PREGABALIN 100 MG CAPSULE PO PRN (23:56)
[2020-08-25] MEDS: ALBUTEROL/IPRATROPIUM 3 ML NEB RESP TX SCH ×4 (00:49→19:40)
[2020-08-25] MEDS: POTASSIUM CHLORIDE RIDER 10 MEQ in PREMIX 1 EACH IV PRN ×3 (02:25→06:52)
[2020-08-25 04:23] LABS: Basophils % 0.1 % (0.0-0.8); Eosinophils # 0.2 10*3/uL (0.0-0.87); Eosinophils % 2.3 % (0.00-10.9); Hematocrit 38.3 VOL% (35.7-47.0); Hemoglobin 12.6 GM/DL (12.0-16.0); Immature Granulocytes % 0.4 %; Immature Granulocytes Absolute 0.04 #; Lymphocytes # 3.3 10*3/uL (1.4-4.0); Lymphocytes % 31.4 % (21.3-54.2); Mean Corpuscular HGB Conc 32.9 GM/DL (32-36); Mean Corpuscular Volume 90.3 FL (87-102); Monocytes % 8.3 % (1.7-12.7); Neutrophils % 57.5 % (38.7-73.9); Platelet Count 216 T/CUMM (130-400); Red Blood Count 4.24 MC/CUMM (3.8-5.5); Red Cell Distribution Width 12.3 % (9.3-17.3); White Blood Count 10.6 T/CUMM (4-12)
[2020-08-25 04:47] LABS: Albumin 2.5 G/DL (3.4-5.0); Bilirubin,Total 0.9 MG/DL (0.2-1.0); Calcium 7.7 MG/DL (8.5-10.1); Osmolality,Calculated 287.7 MOS/KG (273-304); Total Protein 5.2 G/DL (6.4-8.3)
[2020-08-25] MEDS: INSULIN GLARGINE 100 UNIT/ML SUBCUT SCH ×2 (08:54→21:27)
[2020-08-25] MEDS: SUCRALFATE 1 GM TABLET PO SCH ×2 (08:55→21:15)
[2020-08-25] MEDS: GLIMEPIRIDE 2 MG TABLET PO SCH ×2 (08:55→18:26)
[2020-08-25] MEDS: SERTRALINE 25 MG TABLET PO SCH (08:56)
[2020-08-25] MEDS: LACTULOSE 20 GM/30 ML UDCUP PO SCH ×2 (08:56→21:15)
[2020-08-25] MEDS: DOCUSATE SODIUM 100 MG CAPSULE PO SCH ×2 (08:56→21:15)
[2020-08-25] MEDS: POTASSIUM CHLORIDE 20 MEQ TABLET PO SCH ×2 (08:56→21:15)
[2020-08-25] MEDS: carvediloL 25 MG TABLET PO SCH ×2 (08:56→18:26)
[2020-08-25] MEDS: METOPROLOL SUCCINATE XL 25 MG TABLET PO SCH (08:57)
[2020-08-25] MEDS: ASPIRIN EC 81 MG TABLET PO SCH (08:57)
[2020-08-25] MEDS: glyBURIDE 5 MG TABLET PO SCH (08:57)
[2020-08-25] MEDS: AZITHROMYCIN INJ 500 MG in SODIUM CHLORIDE 0.9% 250 ML IV SCH (08:59)
[2020-08-25] MEDS: methylPREDNISolone SOD SUC 40 MG/1 ML VIAL IV SCH ×2 (08:59→21:20)
[2020-08-25] MEDS: cefTRIAXone 500 MG in SYRINGE 1 EACH IV SCH (09:00)
[2020-08-25] MEDS ORDERED: MAGNESIUM SULF RIDER 2 GM in PREMIX 1 EACH IV ONE (10:19)
[2020-08-25] MEDS: INSULIN REGULAR 100 UNIT/ML SUBCUT SCH ×4 (10:50→21:27)
[2020-08-25] MEDS: PREGABALIN 100 MG CAPSULE PO PRN (12:51)
[2020-08-25] MEDS: SODIUM CHLORIDE 0.9% 1,000 ML IV SCH (17:42)
[2020-08-25] MEDS: FLUTICASONE 50 MCG NASAL SPRAY 16 GM BOTTLE BOTH NARES SCH (17:42)
[2020-08-25 18:03] LABS: Calcium 8.1 MG/DL (8.5-10.1); Osmolality,Calculated 293.1 MOS/KG (273-304)
[2020-08-25] MEDS: SIMVASTATIN 10 MG TABLET PO SCH (21:15)
[2020-08-26] MEDS: ALBUTEROL/IPRATROPIUM 3 ML NEB RESP TX SCH ×4 (01:40→19:50)
[2020-08-26] MEDS: PREGABALIN 100 MG CAPSULE PO PRN ×2 (02:51→21:20)
[2020-08-26] MEDS: INSULIN REGULAR 100 UNIT/ML SUBCUT SCH ×4 (08:06→21:22)
[2020-08-26] MEDS: glyBURIDE 5 MG TABLET PO SCH (08:07)
[2020-08-26] MEDS: carvediloL 25 MG TABLET PO SCH ×2 (08:07→16:30)
[2020-08-26] MEDS: GLIMEPIRIDE 2 MG TABLET PO SCH ×2 (08:07→16:29)
[2020-08-26] MEDS: INSULIN GLARGINE 100 UNIT/ML SUBCUT SCH ×2 (08:07→21:22)
[2020-08-26] MEDS: SERTRALINE 25 MG TABLET PO SCH (09:03)
[2020-08-26] MEDS: SUCRALFATE 1 GM TABLET PO SCH ×2 (09:03→21:21)
[2020-08-26] MEDS: methylPREDNISolone SOD SUC 40 MG/1 ML VIAL IV SCH ×2 (09:03→21:20)
[2020-08-26] MEDS: METOPROLOL SUCCINATE XL 25 MG TABLET PO SCH (09:03)
[2020-08-26] MEDS: FLUTICASONE 50 MCG NASAL SPRAY 16 GM BOTTLE BOTH NARES SCH (09:04)
[2020-08-26] MEDS: DOCUSATE SODIUM 100 MG CAPSULE PO SCH ×2 (09:04→21:21)
[2020-08-26] MEDS: POTASSIUM CHLORIDE 20 MEQ TABLET PO SCH ×2 (09:04→21:21)
[2020-08-26] MEDS: LACTULOSE 20 GM/30 ML UDCUP PO SCH ×3 (09:04→21:28)
[2020-08-26] MEDS: ASPIRIN EC 81 MG TABLET PO SCH (09:04)
[2020-08-26] MEDS: AZITHROMYCIN INJ 500 MG in SODIUM CHLORIDE 0.9% 250 ML IV SCH (09:05)
[2020-08-26] MEDS: cefTRIAXone 500 MG in SYRINGE 1 EACH IV SCH (10:30)
[2020-08-26] MEDS: BENZONATATE 100 MG CAPSULE PO PRN (15:33)
[2020-08-26] MEDS: SIMVASTATIN 10 MG TABLET PO SCH (21:21)
[2020-08-27] MEDS: ALBUTEROL/IPRATROPIUM 3 ML NEB RESP TX SCH ×4 (01:02→19:05)
[2020-08-27] MEDS: ONDANSETRON ODT 4 MG TABLET PO PRN ×2 (02:40→10:32)
[2020-08-27 05:34] LABS: Basophils % 0.1 % (0.0-0.8); Eosinophils % 0.1 % (0.00-10.9); Hematocrit 39.7 VOL% (35.7-47.0); Hemoglobin 12.9 GM/DL (12.0-16.0); Immature Granulocytes % 0.8 %; Immature Granulocytes Absolute 0.08 #; Lymphocytes # 1.6 10*3/uL (1.4-4.0); Mean Corpuscular HGB Conc 32.5 GM/DL (32-36); Mean Corpuscular Volume 92.1 FL (87-102); Mean Platelet Volume 12.2 FL (9.6-12.0); Monocytes % 3.3 % (1.7-12.7); Neutrophils % 80.7 % (38.7-73.9); Platelet Count 218 T/CUMM (130-400); Red Blood Count 4.31 MC/CUMM (3.8-5.5); Red Cell Distribution Width 12.3 % (9.3-17.3); White Blood Count 10.4 T/CUMM (4-12)
[2020-08-27 05:47] LABS: Calcium 9.2 MG/DL (8.5-10.1); Osmolality,Calculated 286.5 MOS/KG (273-304)
[2020-08-27] MEDS: INSULIN REGULAR 100 UNIT/ML SUBCUT SCH ×4 (07:51→21:05)
[2020-08-27] MEDS: LACTULOSE 20 GM/30 ML UDCUP PO SCH ×2 (09:02→20:58)
[2020-08-27] MEDS: INSULIN GLARGINE 100 UNIT/ML SUBCUT SCH ×2 (09:04→21:06)
[2020-08-27] MEDS: GLIMEPIRIDE 2 MG TABLET PO SCH ×2 (09:04→16:44)
[2020-08-27] MEDS: DOCUSATE SODIUM 100 MG CAPSULE PO SCH ×2 (09:05→21:03)
[2020-08-27] MEDS: glyBURIDE 5 MG TABLET PO SCH (09:05)
[2020-08-27] MEDS: carvediloL 25 MG TABLET PO SCH ×2 (09:05→16:44)
[2020-08-27] MEDS: METOPROLOL SUCCINATE XL 25 MG TABLET PO SCH (09:06)
[2020-08-27] MEDS: SUCRALFATE 1 GM TABLET PO SCH ×2 (09:06→21:04)
[2020-08-27] MEDS: POTASSIUM CHLORIDE 20 MEQ TABLET PO SCH ×2 (09:06→21:03)
[2020-08-27] MEDS: ASPIRIN EC 81 MG TABLET PO SCH (09:06)
[2020-08-27] MEDS: SERTRALINE 25 MG TABLET PO SCH (09:06)
[2020-08-27] MEDS: FLUTICASONE 50 MCG NASAL SPRAY 16 GM BOTTLE BOTH NARES SCH (09:07)
[2020-08-27] MEDS: methylPREDNISolone SOD SUC 40 MG/1 ML VIAL IV SCH (09:55)
[2020-08-27] MEDS: cefTRIAXone 500 MG in SYRINGE 1 EACH IV SCH (10:32)
[2020-08-27] MEDS ORDERED: predniSONE 20 MG TABLET PO SCH (11:00)
[2020-08-27] MEDS: BENZONATATE 100 MG CAPSULE PO PRN (15:24)
[2020-08-27] MEDS ORDERED: SKIN HEALING OINT (AQUAPHOR) 50 GM TUBE TOP PRN (15:57)
[2020-08-27] MEDS ORDERED: cloNIDine 0.1 MG TABLET PO ONE (15:58)
[2020-08-27] MEDS: SIMVASTATIN 10 MG TABLET PO SCH (21:03)
[2020-08-27] MEDS: cloNIDine 0.1 MG TABLET PO SCH (21:03)
[2020-08-27] MEDS: PREGABALIN 100 MG CAPSULE PO PRN (21:03)
[2020-08-28] MEDS: ALBUTEROL/IPRATROPIUM 3 ML NEB RESP TX SCH ×3 (00:45→13:35)
[2020-08-28] MEDS ORDERED: predniSONE 20 MG TABLET PO SCH (09:00)
[2020-08-28] MEDS: cefTRIAXone 500 MG in SYRINGE 1 EACH IV SCH (12:20)
[2020-08-28] MEDS: cloNIDine 0.1 MG TABLET PO SCH (12:21)
[2020-08-28] MEDS: METOPROLOL SUCCINATE XL 25 MG TABLET PO SCH (12:21)
[2020-08-28] MEDS: LACTULOSE 20 GM/30 ML UDCUP PO SCH (12:21)
[2020-08-28] MEDS: DOCUSATE SODIUM 100 MG CAPSULE PO SCH (12:21)
[2020-08-28] MEDS: POTASSIUM CHLORIDE 20 MEQ TABLET PO SCH (12:22)
[2020-08-28] MEDS: ASPIRIN EC 81 MG TABLET PO SCH (12:22)
[2020-08-28] MEDS: SUCRALFATE 1 GM TABLET PO SCH (12:22)
[2020-08-28] MEDS: GLIMEPIRIDE 2 MG TABLET PO SCH (12:22)
[2020-08-28] MEDS: SERTRALINE 25 MG TABLET PO SCH (12:23)
[2020-08-28] MEDS: glyBURIDE 5 MG TABLET PO SCH (12:23)
[2020-08-28] MEDS: carvediloL 25 MG TABLET PO SCH (12:23)
[2020-08-28] MEDS: INSULIN REGULAR 100 UNIT/ML SUBCUT SCH ×2 (12:23→12:25)
[2020-08-28] MEDS: INSULIN GLARGINE 100 UNIT/ML SUBCUT SCH (12:24)
[2020-08-28] MEDS: FLUTICASONE 50 MCG NASAL SPRAY 16 GM BOTTLE BOTH NARES SCH (13:09)
[2020-08-28 17:19] VITALS: BP 148/73
== END 2020-08-28 16:38 | disposition home health service (06) | DRG 191 ==
LOC: EDUNIT# → N.ED 00:25 → N.EDINP 01:52 → N.3E 13:52
PROVIDERS: ADMIT Internal Medicine; ATTEND Internal Medicine